=== PATIENT | female | born 1935 | race Caucasian/White ===

== ENCOUNTER → 2018-10-23 | Outpatient (CLI) | payer MEDICARE ==
[2018-10-23 16:54] LABS: Thyroid Peroxidase Antibodies 28.6 U/mL (0.0-60.0)
== END ==
LOC: LABWHC1 10:00
PROVIDERS: ATTEND Internal Medicine Endocrinology, Diabetes & Metabolism
DX: R94.6 Abnormal results of thyroid function studies (principal)
CPT/HCPCS: 36415; 82533; 84439; 84443; 84480; 86376

== ENCOUNTER → 2018-12-11 | Outpatient (CLI) | payer MEDICARE | LOC: LABWHC1 11:59 | PROVIDERS: ATTEND Internal Medicine Endocrinology, Diabetes & Metabolism | DX: R94.6 Abnormal results of thyroid function studies (principal) | CPT/HCPCS: 36415; 84443 ==

== ENCOUNTER → 2019-06-09 | Outpatient (CLI) | payer MEDICARE | END | disposition home or self-care (01) | LOC: LABWHC1 11:58 | PROVIDERS: ATTEND Internal Medicine Endocrinology, Diabetes & Metabolism | DX: E03.8 Other specified hypothyroidism (principal) | CPT/HCPCS: 36415; 84443 ==

== ENCOUNTER → 2020-09-21 | Outpatient (CLI) | payer MEDICARE ==
--- NOTE | 2020-09-21 16:25 | NM ---
EXAMINATION TYPE: NM hepatobiliary w CCK DATE OF EXAM: 09/21/2020 COMPARISON: NONE HISTORY: Gastroesophageal reflux disease TECHNIQUE: After the intravenous administration of 5 mCi Tc 99m Mebrofenin hepatobiliary scintigraphy is performed. Immediate images post injection. FINDINGS: There is satisfactory initial accumulation of tracer by the liver. The gallbladder is visualized wit hin 90 minutes. The small bowel activity is noted within 8 minutes. CCK was administered, patient w as injected with 1.4 mcg of Kinevac, and gallbladder ejection fraction is calculated at 78 %, in the normal range. Therefore there is no scintigraphic evidence of cystic or common bile duct obstruction . IMPRESSION: There is some delayed visualization of the gallbladder, normal gallbladder ejection fract ion
== END | disposition home or self-care (01) ==
LOC: RADNMMAIN 12:51
PROVIDERS: ATTEND Surgery
DX: K21.9 Gastro-esophageal reflux disease without esophagitis (principal)
CPT/HCPCS: 78227; A9537; J2805

== ENCOUNTER 2020-09-23 11:00 | Day surgery (SDC) | payer MEDICARE ==
[2020-09-22 08:48] VITALS: BMI 27.1
[~2020-09-23 11:00] MED LIST: LACTATED RINGERS 1,000 ML IV SCH
[2020-09-23 11:40] VITALS: TEMP 98.3
[2020-09-23] MEDS ORDERED: PROPOFOL 10 MG/ML 20 ML VIAL IV ONE (12:28)
[2020-09-23] MEDS ORDERED: LIDOCAINE 1% INJ 10MG/ML (20 ML MDV) ONE (12:28)
--- NOTE | 2020-09-23 12:37 | P.GSHP ---
History of Present Illness H&P Date: 09/23/20 Chief Complaint: GERD Is a 5-year-old female been safe for EGD. She's had issues with GERD. Past Medical History Past Medical History: Hypertension, Thyroid Disorder Additional Past Medical History / Comment(s): MID EPIGASTRIC PAIN SINCE JUL 2020 History of Any Multi-Drug Resistant Organisms: None Reported Past Surgical History: Hysterectomy, Joint Replacement Additional Past Surgical History / Comment(s): LT TKA, RT SCOOTER, COLONOSCOPY. BILAT CATARACTS REMOVED WITH LENS IMPLANTS Past Anesthesia/Blood Transfusion Reactions: No Reported Reaction Smoking Status: Never smoker - Past Family History Mother Family Medical History: Cancer Medications and Allergies Home Medications Medication Instructions Recorded Confirmed Type Aspirin [Adult Low Dose Aspirin EC] 81 mg PO HS 09/22/20 09/22/20 History Bioclens 1 tab PO DAILY 09/22/20 History Cholecalciferol [Vitamin D3 (25 25 mcg PO DAILY 09/22/20 09/22/20 History Mcg = 1000 Iu)] Cholestrol Care 1 tab PO DAILY 09/22/20 History Cyclobenzaprine [Flexeril] 5 mg PO HS 09/22/20 09/22/20 History Estazolam 1 mg PO HS PRN 09/22/20 09/22/20 History Krill/Om-3/Dha/Epa/Phospho/Ast 1 each PO DAILY 09/22/20 09/22/20 History [[place]-3 Krill Oil 300 mg Sfgl] Levothyroxine Sodium [Synthroid] 50 mcg PO DAILY 09/22/20 09/22/20 History Lisinopril [Prinivil] 10 mg PO HS 09/22/20 09/22/20 History Lutein 40 mg PO DAILY 09/22/20 09/22/20 History Querctin 500 mg PO DAILY 09/22/20 History Vitamin C/Biotin [Hair, Skin and 2 tab PO DAILY 09/22/20 09/22/20 History Nails] amLODIPine [Norvasc] 5 mg PO DAILY 09/22/20 09/22/20 History atenoloL [Atenolol] 25 mg PO HS 09/22/20 09/23/20 History hydroCHLOROthiazide [Hydrodiuril] 25 mg PO DAILY 09/22/20 09/22/20 History Allergies Allergy/AdvReac Type Severity Reaction Status Date / Time No Known Allergies Allergy Verified 09/23/20 11:40 Surgical - Exam Vital Signs Temp Pulse Resp BP Pulse Ox 98.3 F 75 16 186/86 97 09/23/20 11:35 09/23/20 11:35 09/23/20 11:35 09/23/20 11:35 09/23/20 11:35 - General well developed, well nourished, no distress - Eyes PERRL - ENT normal pinna - Neck no masses - Respiratory normal expansion - Cardiovascular Rhythm: regular - Abdomen Abdomen: soft, non tender Assessment and Plan Assessment: GERD. We'll perform EGD.
--- NOTE | 2020-09-23 12:43 | P.OP ---
Date of Procedure: 09/23/20 Preoperative Diagnosis: GERD Postoperative Diagnosis: Antral gastritis Small sliding hiatal hernia Esophagitis Procedure(s) Performed: EGD Anesthesia: MAC Surgeon: Jama Allen Pathology: other (Antrum, esophagus) Condition: stable Disposition: PACU Description of Procedure: The patient's placed on the endoscopy table in the lateral position. She received IV sedation. The gastroscope placed oropharynx passed in the esophagus and stomach. Scope was placed through the pylorus. First and second portion of the duodenum appeared normal. Scope was then brought back the antrum this. Mildly inflamed. A biopsies performed. The scope was retroflexed and the remainder of the stomach appeared normal. There was a small sliding hiatal hernia. The GE junction was at 38 cm. The distal esophagus appeared inflamed a biopsies performed. The proximal esophagus appeared normal. The scope was with drawn for patient.
[2020-09-23] MEDS ORDERED: HYDROmorphone 0.5 MG/0.5 ML SYRINGE IVP ONE (12:55)
[2020-09-23 13:10] VITALS: BP 167/88; PULSE 59; RESP 16
== END 2020-09-23 13:58 | disposition home or self-care (01) ==
LOC: ORWHC2ENDO 11:00
PROVIDERS: ATTEND Surgery
DX: K29.50 Unspecified chronic gastritis without bleeding (principal); K21.00 Gastro-esophageal reflux disease with esophagitis, without bleeding; K44.9 Diaphragmatic hernia without obstruction or gangrene; I10 Essential (primary) hypertension; E07.9 Disorder of thyroid, unspecified; Z90.710 Acquired absence of both cervix and uterus; Z96.652 Presence of left artificial knee joint; Z96.641 Presence of right artificial hip joint; Z98.42 Cataract extraction status, left eye; Z98.41 Cataract extraction status, right eye; Z96.1 Presence of intraocular lens; Z80.9 Family history of malignant neoplasm, unspecified; Z79.82 Long term (current) use of aspirin; Z79.890 Hormone replacement therapy; Z79.899 Other long term (current) drug therapy
CPT/HCPCS: 88305; 43239; J2001; J2704; J1170

== ENCOUNTER 2020-10-10 07:56 | Inpatient (IN) | payer MEDICARE ==
[2020-10-10] MEDS ORDERED: SODIUM CHLORIDE 0.9% 1,000 ML IV STA (08:12)
[2020-10-10] MEDS ORDERED: MAG HYDROX/AL HYDROX/SIMETH 30 ML, HYOSCYAMINE ELIXIR 10 ML, LIDOCAINE VISCOUS 2% 10 ML PO STA ×3 (08:12)
[2020-10-10] MEDS ORDERED: PANTOPRAZOLE 40 MG/10 ML VIAL IVP STA (08:12)
--- NOTE | 2020-10-10 08:15 | ED ---
General Adult HPI - General Chief complaint: Recheck/Abnormal Lab/Rx Stated complaint: Pain/ulcers Time Seen by Provider: 10/10/20 08:04 Source: patient, family, RN notes reviewed Mode of arrival: ambulatory Limitations: no limitations - History of Present Illness Initial comments: Patient is a pleasant 85-year-old female presenting to the emergency Department with daughter with concern regarding discomfort from her. Esophagitis. Patient was diagnosed with this with endoscopy a couple of weeks ago. Patient has been having symptoms for the past few months, symptoms worsen the past couple of days and today. Patient is having difficulty sleeping. Discomfort is epigastric region and up into the lower chest. No dyspnea. No vomiting. Patient does not drink alcohol. Patient does not identify certain foods that play a factor. - Related Data Home Medications Medication Instructions Recorded Confirmed Aspirin [Adult Low Dose Aspirin EC] 81 mg PO HS 09/22/20 09/22/20 Bioclens 1 tab PO DAILY 09/22/20 Cholecalciferol [Vitamin D3 (25 25 mcg PO DAILY 09/22/20 09/22/20 Mcg = 1000 Iu)] Cholestrol Care 1 tab PO DAILY 09/22/20 Cyclobenzaprine [Flexeril] 5 mg PO HS 09/22/20 09/22/20 Estazolam 1 mg PO HS PRN 09/22/20 09/22/20 Krill/Om-3/Dha/Epa/Phospho/Ast 1 each PO DAILY 09/22/20 09/22/20 [[place]-3 Krill Oil 300 mg Sfgl] Levothyroxine Sodium [Synthroid] 50 mcg PO DAILY 09/22/20 09/22/20 Lisinopril [Prinivil] 10 mg PO HS 09/22/20 09/22/20 Lutein 40 mg PO DAILY 09/22/20 09/22/20 Querctin 500 mg PO DAILY 09/22/20 Vitamin C/Biotin [Hair, Skin and 2 tab PO DAILY 09/22/20 09/22/20 Nails] amLODIPine [Norvasc] 5 mg PO DAILY 09/22/20 09/22/20 atenoloL [Atenolol] 25 mg PO HS 09/22/20 09/23/20 hydroCHLOROthiazide [Hydrodiuril] 25 mg PO DAILY 09/22/20 09/22/20 Allergies Allergy/AdvReac Type Severity Reaction Status Date / Time No Known Allergies Allergy Verified 10/10/20 10:11 Review of Systems ROS Statement: Those systems with pertinent positive or pertinent negative responses have been documented in the HPI. ROS Other: All systems not noted in ROS Statement are negative. Constitutional: Denies: fever Eyes: Denies: eye pain ENT: Denies: ear pain Respiratory: Denies: cough Cardiovascular: Reports: as per HPI Endocrine: Denies: fatigue Gastrointestinal: Reports: as per HPI Genitourinary: Denies: dysuria Musculoskeletal: Denies: back pain Skin: Denies: rash Neurological: Denies: weakness Past Medical History Past Medical History: Hypertension, Thyroid Disorder History of Any Multi-Drug Resistant Organisms: None Reported Past Surgical History: Hysterectomy, Orthopedic Surgery Past Psychological History: No Psychological Hx Reported Smoking Status: Never smoker Past Alcohol Use History: None Reported Past Drug Use History: None Reported General Exam Limitations: no limitations General appearance: alert, in no apparent distress Head exam: Present: normocephalic Eye exam: Present: normal appearance Neck exam: Present: normal inspection Respiratory exam: Present: normal lung sounds bilaterally. Absent: chest wall t enderness Cardiovascular Exam: Present: regular rate, normal rhythm Expanded Peripheral pulses: 2+: Posterior Tibialis (R), Posterior Tibialis (L) GI/Abdominal exam: Present: soft. Absent: distended, tenderness, pulsatile mass Extremities exam: Present: normal inspection Neurological exam: Present: alert Psychiatric exam: Present: normal affect, normal mood Skin exam: Present: normal color Course Vital Signs 10/10/20 07:59 Temperature 97.5 F L Pulse Rate 91 Respiratory 20 Rate Blood Pressure 165/89 O2 Sat by Pulse 99 Oximetry EKG Findings - EKG Comments: EKG Findings:: Sinus rhythm at 79. [place] 160. QRS 80. QT 440. QTc 504. Left axis. LVH with borderline lateral ST depression Medical Decision Making - Medical Decision Making Patient reevaluated and still having discomfort. Patient and family updated. Case discussed with Dr. Maya, who will admit his patient. Case also discussed with Dr. Sawant who will consult. - Lab Data Result diagrams: 10/10/20 08:37 10/10/20 08:37 Lab Results 10/10/20 10/10/20 10/10/20 Range/Units 08:37 08:37 08:37 WBC 13.2 H (3.8-10.6) k/uL RBC 4.84 (3.80-5.40) m/uL Hgb 15.0 (11.4-16.0) gm/dL Hct 43.2 (34.0-46.0) % MCV 89.3 (80.0-100.0) fL MCH 31.1 (25.0-35.0) pg MCHC 34.8 (31.0-37.0) g/dL RDW 12.6 (11.5-15.5) % Plt Count 273 (150-450) k/uL MPV 7.7 Neutrophils % 74 % Lymphocytes % 17 % Monocytes % 6 % Eosinophils % 1 % Basophils % 1 % Neutrophils # 9.8 H (1.3-7.7) k/uL Lymphocytes # 2.2 (1.0-4.8) k/uL Monocytes # 0.8 (0-1.0) k/uL Eosinophils # 0.1 (0-0.7) k/uL Basophils # 0.1 (0-0.2) k/uL PT 10.1 (9.0-12.0) sec INR 0.9 (<1.2) APTT 22.6 (22.0-30.0) sec Sodium 137 (137-145) mmol/L Potassium 3.6 (3.5-5.1) mmol/L Chloride 103 (98-107) mmol/L Carbon Dioxide 23 (22-30) mmol/L Anion Gap 11 mmol/L BUN 17 (7-17) mg/dL Creatinine 0.60 (0.52-1.04) mg/dL Est GFR (CKD-EPI)AfAm >90 (>60 ml/min/1.73 sqM) Est GFR (CKD-EPI)NonAf 83 (>60 ml/min/1.73 sqM) Glucose 117 H (74-99) mg/dL Calcium 10.1 (8.4-10.2) mg/dL Total Bilirubin 0.7 (0.2-1.3) mg/dL AST 195 H (14-36) U/L ALT 38 H (4-34) U/L Alkaline Phosphatase 48 (38-126) U/L Troponin I (0.000-0.034) ng/mL Total Protein 7.0 (6.3-8.2) g/dL Albumin 4.2 (3.5-5.0) g/dL Amylase 39 (30-110) U/L Lipase 103 (23-300) U/L 10/10/20 Range/Units 08:37 WBC (3.8-10.6) k/uL RBC (3.80-5.40) m/uL Hgb (11.4-16.0) gm/dL Hct (34.0-46.0) % MCV (80.0-100.0) fL MCH (25.0-35.0) pg MCHC (31.0-37.0) g/dL RDW (11.5-15.5) % Plt Count (150-450) k/uL MPV Neutrophils % % Lymphocytes % % Monocytes % % Eosinophils % % Basophils % % Neutrophils # (1.3-7.7) k/uL Lymphocytes # (1.0-4.8) k/uL Monocytes # (0-1.0) k/uL Eosinophils # (0-0.7) k/uL Basophils # (0-0.2) k/uL PT (9.0-12.0) sec INR (<1.2) APTT (22.0-30.0) sec Sodium (137-145) mmol/L Potassium (3.5-5.1) mmol/L Chloride (98-107) mmol/L Carbon Dioxide (22-30) mmol/L Anion Gap mmol/L BUN (7-17) mg/dL Creatinine (0.52-1.04) mg/dL Est GFR (CKD-EPI)AfAm (>60 ml/min/1.73 sqM) Est GFR (CKD-EPI)NonAf (>60 ml/min/1.73 sqM) Glucose (74-99) mg/dL Calcium (8.4-10.2) mg/dL Total Bilirubin (0.2-1.3) mg/dL AST (14-36) U/L ALT (4-34) U/L Alkaline Phosphatase (38-126) U/L Troponin I 5.760 H* (0.000-0.034) ng/mL Total Protein (6.3-8.2) g/dL Albumin (3.5-5.0) g/dL Amylase (30-110) U/L Lipase (23-300) U/L - Radiology Data Radiology results: image reviewed (Chest and abdominal x-ray revealed no acute process) Critical Care Time Critical Care Time: Yes Total Critical Care Time: 32 Disposition Clinical Impression: NSTEMI (non-ST elevated myocardial infarction) Disposition: ADMITTED IP TO THIS [facility] Condition: Serious Is patient prescribed a controlled substance at d/c from ED?: No Referrals: Bran Maya MD [Primary Care Provider] - 1-2 days Decision Time: 10:16
[2020-10-10 08:57] LABS: Basophils # (A) 0.1 k/uL (0-0.2); Basophils % (A) 1 %; Eosinophils # (A) 0.1 k/uL (0-0.7); Eosinophils % (A) 1 %; HCT 43.2 % (34.0-46.0); Lymphocytes # (A) 2.2 k/uL (1.0-4.8); Lymphocytes % (A) 17 %; MCH 31.1 pg (25.0-35.0); MCHC 34.8 g/dL (31.0-37.0); MCV 89.3 fL (80.0-100.0); Mean Platelet Volume 7.7; Monocytes # (A) 0.8 k/uL (0-1.0); Monocytes % (A) 6 %; Neutrophils # (A) 9.8 k/uL (1.3-7.7); Neutrophils % (A) 74 %; Platelet Count 273 k/uL (150-450); RBC 4.84 m/uL (3.80-5.40); RDW 12.6 % (11.5-15.5); WBC 13.2 k/uL (3.8-10.6)
[2020-10-10 09:08] LABS: ALT 38 U/L (4-34); AST 195 U/L (14-36); African American GFR (CKD) >90 (>60 ml/min/1.73 sqM); Albumin 4.2 g/dL (3.5-5.0); Alkaline Phosphatase 48 U/L (38-126); Amylase 39 U/L (30-110); Anion Gap 11 mmol/L; Blood Urea Nitrogen 17 mg/dL (7-17); Calcium 10.1 mg/dL (8.4-10.2); Carbon Dioxide 23 mmol/L (22-30); Chloride 103 mmol/L (98-107); Glucose 117 mg/dL (74-99); Lipase 103 U/L (23-300); Non-African American GFR(CKD) 83 (>60 ml/min/1.73 sqM); Potassium 3.6 mmol/L (3.5-5.1); Sodium 137 mmol/L (137-145); Total Bilirubin 0.7 mg/dL (0.2-1.3)
[2020-10-10 09:09] LABS: INR 0.9 (<1.2); Partial Thromboplastin Time 22.6 sec (22.0-30.0); Prothrombin Time 10.1 sec (9.0-12.0)
--- NOTE | 2020-10-10 09:33 | XR ---
EXAMINATION TYPE: XR chest 2V DATE OF EXAM: 10/10/2020 COMPARISON: NONE HISTORY: Chest and abdominal pain. TECHNIQUE: Frontal and lateral views of the chest are obtained. FINDINGS: There is no focal air space opacity, pleural effusion, or pneumothorax seen. The cardiac silhouette size is within normal limits with atherosclerotic and slightly ectatic thoracic aorta. T he osseous structures are somewhat demineralized. IMPRESSION: No acute cardiopulmonary process.
--- NOTE | 2020-10-10 09:34 | XR ---
EXAMINATION TYPE: XR KUB DATE OF EXAM: 10/10/2020 9:06 AM CLINICAL HISTORY: Abdominal pain. TECHNIQUE: Two Upright KUB images of the abdomen are obtained. COMPARISON: None. FINDINGS: Some paucity of bowel gas. Gas seen in nondistended stomach along with scattered small and large bowel loops. Metallic hardware from right hip arthroplasty is partially imaged. Underlying scol iotic curvature. No free air. Lung bases grossly clear. IMPRESSION: Overall nonspecific but strongly favor nonobstructive bowel gas pattern.
[2020-10-10] MEDS ORDERED: HYDROmorphone 1 MG/ML 1 ML SYRINGE IVP STA (09:36)
[2020-10-10] MEDS ORDERED: ASPIRIN 81 MG PO STA (10:13)
[2020-10-10] MEDS ORDERED: NITROGLYCERIN SL TABS 0.4 MG TAB SUBLINGUAL STA (10:13)
[2020-10-10] MEDS ORDERED: HEPARIN SODIUM,PORCINE 5,000 UNIT/ML 1 ML VIAL IV PRN (10:16)
[2020-10-10] MEDS ORDERED: MORPHINE SULFATE 4 MG/ML SYRINGE IV PRN (10:16)
[2020-10-10] MEDS ORDERED: HEPARIN SODIUM,PORCINE 5,000 UNIT/ML 1 ML VIAL IV ONE (10:16)
[2020-10-10] MEDS ORDERED: NITROGLYCERIN SL TABS 0.4 MG TAB SUBLINGUAL PRN (10:16)
[2020-10-10] MEDS: HEPARIN SOD,PORK IN 0.45% NACL 25,000 UNIT in 0.45% NACL 1 250ML.BAG IV SCH (10:46)
--- NOTE | 2020-10-10 11:00 | P.HPIM ---
History of Present Illness H&P Date: 10/10/20 Chief Complaint: Epigastric and chest pain HISTORY OF PRESENT ILLNESS This is an 85-year-old female patient of Dr. Maya past medical history of hypothyroidism, gastroesophageal reflux disease, hypertension. Patient recently underwent EGD with Dr. Allen on September 23 which found antral gastritis, small sliding hiatal hernia, esophagitis. Pathology came back with Sosa's esophagus. Patient is on Carafate twice daily and omeprazole at bedtime. She presented to the hospital with complaints of epigastric pain that went up into her sternal area and up into her shoulder and right arm, right arm weakness and phlegm production. Symptom onset is vague as patient states she's been having mostly symptoms for the last few months but worse over the past couple of days. She denies any shortness of breath. No vomiting. She is found to be afebrile, heart rate 91, blood pressure 165/89, pulse ox 99% on room air. EKG was sinus rhythm with LVH and lateral ST depression. WBC 13.2, hemoglobin 15, platelet count 273. Electrolytes and renal function normal. Blood sugar was 117. Total bilirubin 0.7, AST 195, ALT 38, alkaline phosphatase 48. Surprisingly, patient's troponin came back at 5.760. Chest x-ray shows no acute cardio p ulmonary process. Patient was diagnosed with a non-ST elevated myocardial infarction, admitted to the cardiac stepdown unit, heparin drip started, cardiology consult requested. REVIEW OF SYSTEMS Constitutional: No fever, no chills, no night sweats. No weight change. No w eakness, fatigue or lethargy. No daytime sleepiness. EENT: No headache. No blurred vision or double vision, no loss of vision. No loss of Hearing, no ringing in the ears, no dizziness. No nasal drainage or congestion. No epistaxis. No sore throat. Lungs: No shortness of breath, cough, no sputum production. No wheezing. Cardiovascular: Reports chest pain, no lower extremity edema. No palpitations. No paroxysmal nocturnal dyspnea. No orthopnea. No lightheadedness or dizziness. No syncopal episodes. Abdominal: Reports abdominal pain. No nausea, vomiting. No diarrhea. No constipation. No bloody or tarry stools.. Reports loss of appetite. Genitourinary: No dysuria, increased frequency, urgency. No urinary retention. Musculoskeletal: No myalgias. No muscle weakness, no gait dysfunction, no frequent falls. No back pain. No neck pain. Integumentary: No wounds, no lesions. No rash or pruritus. No unusual bruising. No change in hair or nails. Neurologic: No aphasia. No facial droop. No change in mentation. No head injury. No headache. No paralysis. No paresthesia. Psychiatric: No depression. No anxiety. No mood swings. Endocrine: No abnormal blood sugars. No weight change. SOCIAL HISTORY She is a lifelong nonsmoker. No alcohol use or abuse, no illicit drug use. Patient resides with her daughter. FAMILY HISTORY Mother at age 93 from metastatic cancer to her brain with history of uterine or ovarian cancer. Father from peptic ulcer disease with perforated ulcer with history of myeloma. Patient has 1 sister with no major medical problems. Patient's 2 brothers and one has history of melanoma and diabetes. Patient's 4 daughters with no major medical problems. PHYSICAL EXAMINATION Gen: This is an 85-year-old female. Patient is resting on the ER stretcher and appears to be comfortable. Daughter is at bedside. HEENT: Head is atraumatic, normocephalic. Pupils equal, round. Sclerae is anicteric. NECK: Supple. No JVD. No lymphadenopathy. No thyromegaly. LUNGS: Clear to auscultation. No wheezes or rhonchi. No intercostal retractions. HEART: Regular rate and rhythm. No murmur. No chest wall tenderness. ABDOMEN: Soft. Bowel sounds are present. No masses. No tenderness. EXTREMITIES: No pedal edema. No calf tenderness. Dorsalis pedis palpable bi laterally. NEUROLOGICAL: Patient is awake, alert and oriented x3. Cranial nerves 2 through 12 are grossly intact. ASSESSMENT AND PLAN 1. Non-ST elevated myocardial infarction. Patient started on heparin drip, echocardiogram ordered, cardiology consult. Continue aspirin 325 mg daily, morphine as needed for pain, nitro ointment every 6 hours. 2. Gastritis and esophagitis with Sosa's esophagus. Continue Carafate twice daily and omeprazole daily. 3. Hypothyroidism. Continue levothyroxine 50 g daily. 4. Chronic insomnia. Continue Estazolam 2 mg at bedtime as needed, patient is been on this long-term.. 5. Hypertension. She is currently on atenolol 25 mg at bedtime. 6. GI prophylaxis. Omeprazole. 7. DVT prophylaxis. Heparin. Patient will be admitted to the hospital for a minimum of 2 night stay. DISCHARGE PLAN Most likely return home with her daughter. Impression and plan of care have been directed as dictated by the signing physician. Kacie Bush nurse practitioner acting as scribe for signing physician. Past Medical History Past Medical History: Hypertension, Thyroid Disorder History of Any Multi-Drug Resistant Organisms: None Reported Past Surgical History: Hysterectomy, Orthopedic Surgery Past Psychological History: No Psychological Hx Reported Smoking Status: Never smoker Past Alcohol Use History: None Reported Past Drug Use History: None Reported - Past Family History Mother Additional Family Medical History / Comment(s): Lots of heart issues. Medications and Allergies Home Medications Medication Instructions Recorded Confirmed Type Cyclobenzaprine [Flexeril] 5 mg PO TID 09/22/20 10/10/20 History Estazolam 2 mg PO HS PRN 09/22/20 10/10/20 History Levothyroxine Sodium [Synthroid] 50 mcg PO DAILY 09/22/20 10/10/20 History Lisinopril [Prinivil] 10 mg PO HS 09/22/20 10/10/20 History Vitamin C/Biotin [Hair, Skin and 1 tab PO DAILY 09/22/20 10/10/20 History Nails] atenoloL [Atenolol] 25 mg PO HS 09/22/20 10/10/20 History Omeprazole 40 mg PO DAILY 10/10/20 10/10/20 History Sucralfate [Carafate] 1 gm PO BID 10/10/20 10/10/20 History Turmeric Root Extract [Turmeric] 500 mg PO DAILY 10/10/20 10/10/20 History Allergies Allergy/AdvReac Type Severity Reaction Status Date / Time No Known Allergies Allergy Verified 10/10/20 10:11 Physical Exam Vitals: Vital Signs Temp Pulse Resp BP Pulse Ox 10/10/20 07:59 97.5 F L 91 20 165/89 99 Intake and Output 10/09/20 10/10/20 10/10/20 22:59 06:59 14:59 Other: Weight 71.668 kg Results CBC & Chem 7: 10/11/20 04:23 10/11/20 04:23 Labs: Abnormal Lab Results - Last 24 Hours (Table) 10/10/20 10/10/20 10/10/20 Range/Units 08:37 08:37 08:37 WBC 13.2 H (3.8-10.6) k/uL Neutrophils # 9.8 H (1.3-7.7) k/uL Glucose 117 H (74-99) mg/dL AST 195 H (14-36) U/L ALT 38 H (4-34) U/L Troponin I 5.760 H* (0.000-0.034) ng/mL
[2020-10-10 11:03] LABS: Appearance,Urine Clear (Clear); Bilirubin,Urine Negative (Negative); Blood,Urine Negative (Negative); Color,Urine Light Yellow; Glucose,Urine (UA) Negative (Negative); Hyaline Casts,Urine 1 /lpf (0-2); Ketones,Urine Negative (Negative); Leukocyte Esterase,Urine Trace (Negative); Mucus,Urine Rare /hpf; Nitrite,Urine Negative (Negative); Protein,Urine Negative (Negative); RBC,Urine <1 /hpf (0-5); Specific Gravity,Urine 1.007 (1.001-1.035); Urobilinogen,Urine <2.0 mg/dL (<2.0); WBC,Urine 2 /hpf (0-5)
--- NOTE | 2020-10-10 12:05 | CONS ---
CONSULTATION ATTENDING PHYSICIAN: Dr. Maya. HISTORY OF PRESENT ILLNESS: Mrs. Ledezma is an 85-year-old female with known history of hypertension who for the last 2 weeks has been complaining of chest discomfort. The discomfort was started in the abdomen radiating up to the chest. She underwent upper endoscopy by Dr. Allen and was noted to have evidence suggestive of an esophagitis and gastritis. Last night she had worse pain and she came into the emergency room and was noted to have an elevation of her troponin. The patient denies any prior cardiac history. Up to now she has been reasonably active. She denies any dizziness or palpitation. She denies any syncope. She has occasional peripheral edema. No PND or orthopnea. She has no recent cardiac workup. On her upper endoscopy done on September 23, she was noted to have an antral gastritis, hiatal hernia and Sosa's esophagus. Her coronary artery risk factors are positive for hypertension. She is a nonsmoker, nondiabetic. Her lipid profile is not available. She continues to be on atenolol 25 mg daily, Carafate 1 gram twice a day, omeprazole, Prinivil 10 mg daily, levothyroxine, Flexeril. REVIEW OF SYSTEMS: RESPIRATORY SYSTEM: She has dyspnea on exertion recently. No wheezing. No cough. GI SYSTEM: She has history of hiatal hernia. No recent GI bleeding. SYSTEM: No dysuria or hematuria. NERVOUS SYSTEM: No stroke or seizure. PHYSICAL EXAMINATION: She is an 85-year-old female, alert, oriented, in moderate discomfort. Blood pressure 143/80 with a heart rate in the 80s. HEAD: Normocephalic. Eyes sclerae nonicteric. NECK: Good carotid upstroke, no bruit, no jugular venous distention. LUNGS: Clear to auscultation. HEART: Regular rate and rhythm S1, S2. No S3 with systolic murmur heard at the base. No diastolic murmur. No rub. ABDOMEN: Soft. Mild epigastric tenderness. Positive bowel sounds. No organomegaly. EXTREMITIES: No edema. Intact distal pulses. LAB DATA: Lab data revealed a troponin 5.76. BUN and creatinine of 17 and 0.6. Potassium 3.6. AST 195, ALT of 38. Hemoglobin of 15, white blood cell of 13.2. EKG revealed a sinus mechanism with a normal axis and intervals and ST depression in the lateral leads with evidence of left ventricular hypertrophy. There is no evidence of evolution on her chest x-ray. Her abdominal x-ray revealed a nonspecific pattern. Her chest x-ray shows no acute infiltrate. IMPRESSION: 1. Evidence of epigastric and chest discomfort with findings consistent with non STEMI. 2. History of hypertension. 3. History of gastritis and esophagitis with Sosa's esophagus. RECOMMENDATION: I discussed with the patient and her daughter at length the finding. I discussed with them the options including cardiac catheterization versus clinical observation. Both options, risks, and complication were discussed with her. She is not quite sure what she wants. At this time, we will continue her medical therapy. I will adjust her regimen. We will obtain echocardiogram with Doppler and depending on her progress, further recommendation will be made. Thank you for this consult. Will follow with you. YENNY / RAQUELN: [id number] /
[2020-10-10] MEDS: ATORVASTATIN 40 MG TAB PO SCH (12:48)
[2020-10-10] MEDS: METOPROLOL TARTRATE 25 MG TAB PO SCH ×2 (12:49→20:31)
[2020-10-10] MEDS: NITROGLYCERIN OINT 1 INCH/GM PACKET TOPICAL SCH ×2 (12:51→19:25)
[2020-10-10] MEDS: CYCLOBENZAPRINE 5 MG TAB PO SCH ×2 (15:52→20:32)
[2020-10-10] MEDS: SUCRALFATE 1 GM TAB PO SCH (20:31)
[2020-10-10] MEDS: lisinopriL 10 MG TAB PO SCH (20:31)
[2020-10-10] MEDS ORDERED: atenoloL 25 MG TAB PO SCH (21:00)
[2020-10-10] MEDS: TEMAZEPAM 15 MG CAP PO PRN (21:32)
[2020-10-11] MEDS: LEVOTHYROXINE 50 MCG TAB PO SCH (06:01)
[2020-10-11] MEDS: NITROGLYCERIN OINT 1 INCH/GM PACKET TOPICAL SCH ×3 (06:50→19:10)
[2020-10-11 07:12] LABS: Calcium 9.9 mg/dL (8.4-10.2); Potassium 3.5 mmol/L (3.5-5.1)
[2020-10-11 07:46] LABS: Cholesterol 150 mg/dL (<200); HDL Cholesterol 50 mg/dL (40-60); LDL Cholesterol,Calculated 71 mg/dL (0-99); Triglycerides 143 mg/dL (<150)
[2020-10-11] MEDS ORDERED: ASPIRIN 81 MG PO SCH (09:00)
[2020-10-11] MEDS ORDERED: ASPIRIN 325 MG TAB PO SCH (09:00)
[2020-10-11] MEDS: PANTOPRAZOLE 40 MG TABLET PO SCH (09:06)
[2020-10-11] MEDS: ATORVASTATIN 40 MG TAB PO SCH (09:06)
[2020-10-11] MEDS: METOPROLOL TARTRATE 25 MG TAB PO SCH ×2 (09:06→19:59)
[2020-10-11] MEDS: SUCRALFATE 1 GM TAB PO SCH ×2 (09:06→19:59)
[2020-10-11] MEDS: CYCLOBENZAPRINE 5 MG TAB PO SCH ×3 (09:07→22:52)
[2020-10-11] MEDS ORDERED: ATORVASTATIN 80 MG TAB PO STA (09:11)
[2020-10-11] MEDS ORDERED: ALPRAZolam 0.5 MG TAB PO PRN (09:11)
[2020-10-11] MEDS ORDERED: ALPRAZolam 0.25 MG TAB PO PRN (09:11)
[2020-10-11] MEDS ORDERED: ASPIRIN 325 MG TAB PO STA (09:11)
[2020-10-11] MEDS ORDERED: SODIUM CHLORIDE 0.9% 1,000 ML in EMPTY BAG 1 BAG IV ONE (09:11)
[2020-10-11] MEDS ORDERED: ASPIRIN 81 MG PO STA (09:31)
[2020-10-11] MEDS ORDERED: ATORVASTATIN 40 MG TAB PO STA (09:36)
--- NOTE | 2020-10-11 10:21 | P.PN ---
Subjective This is a pleasant 85-year-old female with past medical history significant for hypertension. She is currently being evaluated secondary to non-ST elevated myocardial infarction. She was seen by Dr. Dr. Sawant yesterday and recommended cardiac catheterization however she wanted to think about it and wasn't sure if she wanted to proceed with heart cath or up for medical therapy. At this time she has discussed with her family and she would like to proceed with cardiac catheterization. She has had no further symptoms of chest disco mfort. She has no shortness of breath, dizziness or palpitations. Blood pressure 134/76 heart rate 73 afebrile maintaining oxygen saturation on room air. Laboratory data reviewed, sodium 139, potassium 3.5, creatinine 0.77. Troponin peak was 9.2. Currently maintained on aspirin 81 mg daily, meera rvastatin 40 mg daily, lisinopril 10 mg at bedtime, Lopressor 25 mg twice a day and IV heparin infusion. GENERAL: Well-appearing, well-nourished and in no acute distress. NECK: Supple without JVD or thyromegaly. LUNGS: Breath sounds clear to auscultation bilaterally. Respiration equal and unlabored. No wheezes, rales or rhonchi. HEART: Regular rate and rhythm with systolic ejection murmur at the base, no rubs or gallops. S1 and S2 heard. EXTREMITIES: Normal range of motion, no edema. No clubbing or cyanosis. Peripheral pulses intact. ASSESSMENT NSTEMI Hypertension History of gastritis and esophagitis with Sosa's esophagus PLAN Proceed with cardiac catheterization this afternoon with Dr. Sawant as previously discussed. Echocardiogram has been obtained, preliminary review reveals ejection fraction approximately 50% with some posterior hypokinesia noted. Further recommendations to follow based upon clinical course. Nurse Practitioner note has been reviewed, I agree with a documented findings and plan of care. Patient was seen and examined. Objective - Vital Signs Vital signs: Vital Signs Temp 98.6 F 10/11/20 04:00 Pulse 69 10/11/20 04:00 Resp 17 10/11/20 04:00 BP 122/68 10/11/20 04:00 Pulse Ox 96 10/11/20 04:00 Intake & Output 10/10/20 10/11/20 10/11/20 18:59 06:59 18:59 Intake Total 248.6 143.933 Balance 248.6 143.933 Weight 71.7 kg 72.6 kg Intake: Amount of Fluid Infused ( 8.6 ml) Intake, IV Titration 143.933 Amount Heparin Sod,Pork in 0.45% 143.933 NaCl 25,000 unit In 0.45 % NaCl 1 250ml.bag @ 12 UNITS/KG/HR 8.6 mls/hr IV .Q24H HAILEE Rx#:[id number] Oral 240 Other: # Voids 1 - Labs CBC & Chem 7: 10/11/20 04:23 10/11/20 04:23 Labs: Abnormal Lab Results - Last 24 Hours (Table) 10/10/20 10/10/20 10/10/20 Range/Units 08:37 10:53 10:55 APTT (22.0-30.0) sec Chloride (98-107) mmol/L Glucose (74-99) mg/dL Troponin I 5.760 H* 5.620 H* (0.000-0.034) ng/mL Ur Leukocyte Esterase Trace H (Negative) Urine Mucus Rare H (None) /hpf 10/10/20 10/10/20 10/10/20 Range/Units 14:17 14:17 16:39 APTT 80.5 H 74.1 H (22.0-30.0) sec Chloride (98-107) mmol/L Glucose (74-99) mg/dL Troponin I 9.200 H* (0.000-0.034) ng/mL Ur Leukocyte Esterase (Negative) Urine Mucus (None) /hpf 10/11/20 10/11/20 Range/Units 04:23 04:23 APTT 107.9 H* (22.0-30.0) sec Chloride 108 H (98-107) mmol/L Glucose 104 H (74-99) mg/dL Troponin I (0.000-0.034) ng/mL Ur Leukocyte Esterase (Negative) Urine Mucus (None) /hpf
--- NOTE | 2020-10-11 11:11 | P.PN ---
Subjective Progress Note Date: 10/11/20 HISTORY OF PRESENT ILLNESS This is an 85-year-old female patient of Dr. Maya past medical history of hypothyroidism, gastroesophageal reflux disease, hypertension. Patient recently underwent EGD with Dr. Allen on September 23 which found antral gastritis, small sliding hiatal hernia, esophagitis. Pathology came back with Sosa's esophagus. Patient is on Carafate twice daily and omeprazole at bedtime. She presented to the hospital with complaints of epigastric pain that went up into her sternal area and up into her shoulder and right arm, right arm weakness and phlegm production. Symptom onset is vague as patient states she's been having mostly symptoms for the last few months but worse over the past couple of days. She denies any shortness of breath. No vomiting. She is found to be afebrile, heart rate 91, blood pressure 165/89, pulse ox 99% on room air. EKG was sinus rhythm with LVH and lateral ST depression. WBC 13.2, hemoglobin 15, platelet co unt 273. Electrolytes and renal function normal. Blood sugar was 117. Total bilirubin 0.7, AST 195, ALT 38, alkaline phosphatase 48. Surprisingly, patient's troponin came back at 5.760. Chest x-ray shows no acute cardio pulmonary process. Patient was diagnosed with a non-ST elevated myocardial infarction, admitted to the cardiac stepdown unit, heparin drip started, cardiology consult requested. 10/11: Repeat troponins came back at 5.62 and 9.2. Triglycerides 143, cholesterol 150, LDL 71, HDL 50. Creatinine 0.77. She denies having any chest pain. Patient is currently on heparin drip. She denies any lightheadedness or dizziness. No palpitations. No blood in her stools. She has been seen by cardiology and given option of heart catheterization or medical management. Patient has decided to undergo heart catheterization. Echocardiogram has been obtained and report is pending. Patient is afebrile, heart rate 73, blood pressure 134/76, pulse ox 96% on room air. REVIEW OF SYSTEMS Constitutional: No fever, no chills, no night sweats. No weight change. No weakness, fatigue or lethargy. No daytime sleepiness. EENT: No headache. No blurred vision or double vision, no loss of vision. No loss of Hearing, no ringing in the ears, no dizziness. No nasal drainage or congestion. No epistaxis. No sore throat. Lungs: No shortness of breath, cough, no sputum production. No wheezing. Cardiovascular: Denies chest pain, no lower extremity edema. No palpitations. No paroxysmal nocturnal dyspnea. No orthopnea. No lightheadedness or dizziness. No syncopal episodes. Abdominal: Denies abdominal pain. No nausea, vomiting. No diarrhea. No constipation. No bloody or tarry stools.. Reports loss of appetite. Genitourinary: No dysuria, increased frequency, urgency. No urinary retention. Musculoskeletal: No myalgias. No muscle weakness, no gait dysfunction, no frequent falls. No back pain. No neck pain. Integumentary: No wounds, no lesions. No rash or pruritus. No unusual bruising. No change in hair or nails. Neurologic: No aphasia. No facial droop. No change in mentation. No head injury. No headache. No paralysis. No paresthesia. Psychiatric: No depression. No anxiety. No mood swings. Endocrine: No abnormal blood sugars. No weight change. PHYSICAL EXAMINATION Gen: This is an 85-year-old female. Patient is resting on the edge of her bed and appears to be comfortable. Patient appears to be in no acute distress. HEENT: Head is atraumatic, normocephalic. Pupils equal, round. Sclerae is anicteric. NECK: Supple. No JVD. No lymphadenopathy. No thyromegaly. LUNGS: Clear to auscultation. No wheezes or rhonchi. No intercostal retractions. HEART: Regular rate and rhythm. No murmur. No chest wall tenderness. ABDOMEN: Soft. Bowel sounds are present. No masses. No tenderness. EXTREMITIES: No pedal edema. No calf tenderness. Dorsalis pedis palpable bilaterally. NEUROLOGICAL: Patient is awake, alert and oriented x3. Cranial nerves 2 through 12 are grossly intact. ASSESSMENT AND PLAN 1. Non-ST elevated myocardial infarction. Continue heparin drip, ech ocardiogram ordered, cardiology consult appreciated. Continue aspirin 81 mg daily, atorvastatin 40 mg daily, Lopressor 25 mg twice daily, morphine as needed for pain, nitro ointment every 6 hours. 2. Gastritis and esophagitis with Sosa's esophagus. Continue Carafate twice daily and omeprazole daily. 3. Hypothyroidism. Continue levothyroxine 50 g daily. 4. Chronic insomnia. Continue Estazolam 2 mg at bedtime as needed, patient is been on this long-term.. 5. Hypertension. Lopressor 25 mg twice daily, lisinopril 10 mg at bedtime. 6. GI prophylaxis. Omeprazole. 7. DVT prophylaxis. Heparin. DISCHARGE PLAN Most likely return home with her daughter. Impression and plan of care have been directed as dictated by the signing physician. Kacie Bush nurse practitioner acting as scribe for signing physician. Objective - Vital Signs Vital signs: Vital Signs Temp 98.4 F 10/11/20 09:05 Pulse 73 10/11/20 09:05 Resp 18 10/11/20 09:05 BP 134/76 10/11/20 09:05 Pulse Ox 96 10/11/20 09:05 Intake & Output 10/10/20 10/11/20 10/11/20 18:59 06:59 18:59 Intake Total 248.6 143.933 Balance 248.6 143.933 Weight 71.7 kg 72.6 kg Intake: Amount of Fluid Infused ( 8.6 ml) Intake, IV Titration 143.933 Amount Heparin Sod,Pork in 0.45% 143.933 NaCl 25,000 unit In 0.45 % NaCl 1 250ml.bag @ 12 UNITS/KG/HR 8.6 mls/hr IV .Q24H [facility] Rx#:[id number] Oral 240 Other: # Voids 1 - Labs CBC & Chem 7: 10/11/20 04:23 10/11/20 04:23 Labs: Abnormal Lab Results - Last 24 Hours (Table) 10/10/20 10/10/20 10/10/20 Range/Units 10:53 10:55 14:17 APTT 80.5 H (22.0-30.0) sec Chloride (98-107) mmol/L Glucose (74-99) mg/dL Troponin I 5.620 H* (0.000-0.034) ng/mL Ur Leukocyte Esterase Trace H (Negative) Urine Mucus Rare H (None) /hpf 10/10/20 10/10/20 10/11/20 Range/Units 14:17 16:39 04:23 APTT 74.1 H 107.9 H* (22.0-30.0) sec Chloride (98-107) mmol/L Glucose (74-99) mg/dL Troponin I 9.200 H* (0.000-0.034) ng/mL Ur Leukocyte Esterase (Negative) Urine Mucus (None) /hpf 10/11/20 Range/Units 04:23 APTT (22.0-30.0) sec Chloride 108 H (98-107) mmol/L Glucose 104 H (74-99) mg/dL Troponin I (0.000-0.034) ng/mL Ur Leukocyte Esterase (Negative) Urine Mucus (None) /hpf
[2020-10-11] MEDS ORDERED: VERAPAMIL 2.5 MG/ML 2 ML AMP ONE (11:46)
[2020-10-11] MEDS ORDERED: LIDOCAINE 1% INJ 10MG/ML (20 ML MDV) ONE (11:46)
[2020-10-11] MEDS ORDERED: fentaNYL (PF) 50 MCG/ML 2 ML AMP ONE (11:46)
[2020-10-11] MEDS ORDERED: HEPARIN SODIUM 1,000 UN/ML (10ML VL) ONE (11:46)
[2020-10-11] MEDS ORDERED: IV FLUID CONTINUATION 1,000 ML IV ONE (11:50)
[2020-10-11] MEDS ORDERED: fentaNYL (PF) 50 MCG/ML 2 ML AMP IVP ONE (12:10)
[2020-10-11] MEDS ORDERED: LIDOCAINE 1% INJ 10MG/ML (20 ML MDV) SQ ONE (12:12)
[2020-10-11] MEDS ORDERED: VERAPAMIL SYRINGE (5 MG/10 ML) INTRAARTER ONE (12:19)
[2020-10-11] MEDS ORDERED: HEPARIN SODIUM 1,000 UN/ML (10ML VL) IV ONE ×2 (12:22→12:53)
[2020-10-11] MEDS ORDERED: CLOPIDOGREL 75 MG TAB ONE (12:24)
[2020-10-11] MEDS ORDERED: CLOPIDOGREL 75 MG TAB PO ONE (12:31)
[2020-10-11] MEDS ORDERED: NITROGLYCERIN 1000MCG/10ML SYRINGE INTRACORON ONE (12:37)
[2020-10-11] MEDS ORDERED: IOPAMIDOL-370 125ML BTL INJ ONE (12:44)
--- NOTE | 2020-10-11 12:49 | ECHOF ---
Referral Reason:LVF MEASUREMENTS -------- HEIGHT: 162.6 cm WEIGHT: 72.6 kg BP: 122/68 RVIDd: 3.0 cm (< 3.3) IVSd: 1.3 cm (0.6 - 1.1) LVIDd: 4.3 cm (3.9 - 5.3) LVPWd: 1.4 cm (0.6 - 1.1) IVSs: 1.5 cm LVIDs: 3.8 cm LVPWs: 1.4 cm LA Diam: 3.4 cm (2.7 - 3.8) MV EXCURSION: 11.453 mm (> 18.000) MV EF SLOPE: 49 mm/s (70 - 150) EPSS: 0.7 cm MV E Devonte: 0.56 m/s MV DecT: 416 ms MV A Devonte: 0.69 m/s MV E/A Ratio: 0.80 RAP: 5.00 mmHg RVSP: 11.42 mmHg FINDINGS -------- Sinus rhythm. This was a techncally difficult study with suboptimal views, , Lumason utilized for enhancement of im ages. The left ventricular size is normal. There is borderline concentric left ventricular hypertrophy. Overall left ventricular systolic function is low-normal with, an EF between 50 - 55 %. Basal post erior LV wall motion is hypokinetic. The right ventricle is normal in size. The right atrial size is normal. There is mild aortic valve sclerosis. There is no evidence of aortic regurgitation. Mild mitral annular calcification present. Mild mitral regurgitation is present. Mild tricuspid regurgitation present. The right ventricular systolic pressure, as measured by Doppl er, is 11.42mmHg. Trace/mild (physiologic) pulmonic regurgitation. The aortic root size is normal. There is no pericardial effusion. CONCLUSIONS -------- 1. This was a techncally difficult study with suboptimal views, , Lumason utilized for enhancement of images. 2. The left ventricular size is normal. 3. There is borderline concentric left ventricular hypertrophy. 4. Overall left ventricular systolic function is low-normal with, an EF between 50 - 55 %. 5. Basal posterior LV wall motion is hypokinetic. 6. The right ventricle is normal in size. 7. The right atrial size is normal. 8. There is mild aortic valve sclerosis. 9. Mild mitral annular calcification present. 10. Mild mitral regurgitation is present. 11. Mild tricuspid regurgitation present. 12. The right ventricular systolic pressure, as measured by Doppler, is 11.42mmHg. 13. Trace/mild (physiologic) pulmonic regurgitation. 14. The aortic root size is normal. 15. There is no pericardial effusion. CASE BRIEFER: Rossana Daily RDCS
[2020-10-11] MEDS ORDERED: ZOLPIDEM 5 MG TAB PO PRN (13:01)
[2020-10-11] MEDS ORDERED: ATROPINE SULFATE 0.1 MG/ML 10ML SYRINGE IV PRN (13:01)
[2020-10-11] MEDS ORDERED: RX INFO: IV CONTRAST WAS GIVEN 1 EACH MISC MISCELLANE PRN (13:01)
[2020-10-11] MEDS ORDERED: MAG HYDROX/AL HYDROX/SIMETH 30 ML CUP PO PRN (13:01)
[2020-10-11] MEDS ORDERED: NITROGLYCERIN SL TABS 0.4 MG TAB SUBLINGUAL PRN (13:01)
[2020-10-11] MEDS ORDERED: SODIUM CHLORIDE 0.9% 1,000 ML IV SCH (13:15)
[2020-10-11 14:51] VITALS: BMI 27.4
--- NOTE | 2020-10-11 14:52 | CC ---
CARDIAC CATHETERIZATION REPORT Mrs. Ledezma is an 85-year-old female with no prior documented history of coronary artery disease who presented with symptoms of chest discomfort going on and off for the last couple weeks. On presentation, her troponins were elevated at [address]-segment depression on the lateral precordial leads. Discussion regarding cardiac catheterization was made with the patient and her family on the 10 of October and she was not quite sure, then on 11 of October she decided to proceed with a cardiac catheterization. The procedure as well as the risks and the complications were discussed with the patient who is in full understanding and agreement. PROCEDURE: Patient was brought to the quality lab technician in a fasting semi-sedated state after receiving fentanyl and Benadryl and achieving moderate conscious sedated state. Using Xylocaine anesthesia and Seldinger technique, a 6-[place] sheath was introduced in the right radial artery. Selective right and left coronary angiography was performed using 5- [place] 3.5 bend right and left Elida catheter. Multiple views of the coronary artery including hemiaxial views were obtained. Following that, angioplasty and stenting was performed. Following that, a 5-[place] tight pigtail catheter was introduced in the left ventricle and the left ventricular end-diastolic pressure was calculated. Following that, catheter and sheath were removed. Hemostasis was obtained with deployment of TR band. There was no immediate complication. Patient was returned to her room in stable condition. FINDINGS: FLUOROSCOPY: There was calcification involving the ostium of the right coronary artery as well as the left anterior descending artery. LEFT MAIN: This is a large size vessel, bifurcating into left circumflex, left anterior descending artery. Left main coronary artery has no evidence of high-grade stenosis. LEFT ANTERIOR DESCENDING ARTERY: This is a large-sized vessel reaching toward the apex with wraparound apex segment giving rise to a moderately sized diagonal branch. The left anterior descending artery at the takeoff of the diagonal branch has an 80% plaque involving the takeoff of the diagonal branch. Prior to the plaque, there is a tubular lesion of about 30% to 40%. The diagonal branch has a branching segment that has about 70% blockage. The rest of the vessel has no high-grade stenosis. LEFT CIRCUMFLEX: This is a nondominant vessel, small in caliber giving rise to an obtuse marginal branch. The left circumflex as well as branches have no evidence of obstructive coronary artery disease. RIGHT CORONARY ARTERY: This is a large dominant vessel ectatic in the proximal segment and distally prior to the bifurcation of the PDA and PLV has a 99% stenosis. The rest of the vessel has mild intimal disease in the mid segment without any evidence of high- grade stenosis. LEFT VENTRICULOGRAM: The left ventriculogram was not performed. HEMODYNAMICS: There was no gradient across the aortic valve. The left ventricular end-diastolic pressure was 20-24 mmHg. CONCLUSION: 1. Calcified coronary arteries. 2. 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 3. Significant disease in the mid left anterior descending artery at the takeoff of the diagonal branch. 4. Mildly elevated left ventricular end-diastolic pressure. RECOMMENDATION: In view of finding anatomy, I recommend proceeding with angioplasty and stenting of the RCA. The procedure as well as the risks and the complications were discussed with the patient who is in full understanding and agreement. MMRICHARD / RAQUELN: [id number] /
--- NOTE | 2020-10-11 14:58 | PTCA ---
PERCUTANEOUSTRANS CORORONARY ANGIOGRAPHY Mrs. Ledezma is an 85-year-old female who presented with evidence of non ST-segment elevation myocardial infarction, underwent cardiac catheterization was found to have critical stenosis involving the right coronary artery. In view of that, recommendation was made regarding angioplasty and stenting. The procedure as well as the risks, and complication were discussed with the patient who is in full understanding and agreement. PROCEDURE: A 6-Irish FR3.5 guiding catheter was introduced in the system. After cannulating the right coronary ostium, a 0.014 balanced medium weight J-wire was advanced across the lesion, positioned distally then a 3.25 x 12 mm Trek balloon was advanced and one inflation at 10 atmospheres was done. Following that, the balloon was removed and a 4.0 x 15 mm Xience Sara stent was deployed post dilated at 16 atmospheres. After the last inflation, after appropriate wait, the balloon and the guidewire were withdrawn back in the guiding catheter. Images were obtained and repeated. Those images reveal stable successful stenting. At that point, the guiding catheter, the balloon and the guidewire were removed. Left ventricular end-diastolic pressure was calculated. Following that, catheter and sheath were removed. Hemostasis was obtained with deployment of a TR band. There was no immediate complication. Patient was returned to her room in stable condition. Of note, the patient received a total of 6000 units of intravenous heparin. Her ACT was followed. She received an oral loading dose of clopidogrel. She has chest discomfort and EKG changes with the inflation that resulted in procedure. RESULTS: Successful stenting of the distal right coronary artery with reduction of stenosis from 99% to 0%. RECOMMENDATION: Patient to continue aspirin, Plavix, statin, beta ramsey and MARINA inhibitor. The importance of dual antiplatelet treatment were discussed with the patient and her family and were in full understanding and agreement. She will be re-evaluated at a later time regarding the need to undergo the revascularization of LAD. Duration of sedation is 43 minutes. MMODL / IJN: [id number] /
--- NOTE | 2020-10-11 15:01 | LTR ---
October 11, 2020 Re: Jemma Ledezma Dear Dr. Maya: I had the opportunity to perform cardiac catheterization and coronary angioplasty on Mrs. Bismark cunningham at [facility] on the 11 of October and a full copy of the procedure note will be forwarded to you. In brief, she was found to have critical stenosis involving the distal right coronary artery as well as significant disease in the mid LAD. She underwent successful stenting of the distal right coronary artery using a drug-eluding stent. I would recommend to continue medical therapy and will be re-evaluated down the road regarding the need to undergo revascularization of her left anterior descending artery. I will keep you updated on progress. Thank you again for allowing me the opportunity to participate in her care. Please feel free to call for any questions. Sincerely yours, MD YENNY Armenta / LEV: [id number] /
[2020-10-11] MEDS ORDERED: HEPARIN SODIUM,PORCINE 5,000 UNIT/ML 1 ML VIAL IV PRN (15:13)
[2020-10-11] MEDS ORDERED: METOPROLOL TARTRATE 25 MG TAB PO STA (15:14)
[2020-10-11] MEDS: HEPARIN SOD,PORK IN 0.45% NACL 25,000 UNIT in 0.45% NACL 1 250ML.BAG IV SCH ×2 (15:35→19:10)
[2020-10-11] MEDS: AMIODARONE 200 MG TAB PO SCH ×2 (16:20→20:01)
[2020-10-11 16:31] LABS: Partial Thromboplastin Time 50.5 sec (22.0-30.0); Prothrombin Time 10.5 sec (9.0-12.0)
[2020-10-11 17:11] LABS: Basophils # (A) 0.1 k/uL (0-0.2); Basophils % (A) 1 %; Eosinophils # (A) 0.1 k/uL (0-0.7); Eosinophils % (A) 1 %; HCT 38.4 % (34.0-46.0); HGB 12.8 gm/dL (11.4-16.0); Lymphocytes # (A) 2.5 k/uL (1.0-4.8); Lymphocytes % (A) 26 %; MCH 31.3 pg (25.0-35.0); MCHC 33.2 g/dL (31.0-37.0); Monocytes # (A) 0.5 k/uL (0-1.0); Monocytes % (A) 5 %; Neutrophils # (A) 6.3 k/uL (1.3-7.7); Neutrophils % (A) 66 %; RBC 4.08 m/uL (3.80-5.40); WBC 9.5 k/uL (3.8-10.6)
[2020-10-11 17:19] LABS: MCV 94.3 fL (80.0-100.0)
[2020-10-11 17:22] LABS: Mean Platelet Volume 7.6; Platelet Count 213 k/uL (150-450)
[2020-10-11] MEDS: ATORVASTATIN 80 MG TAB PO SCH (19:59)
[2020-10-11] MEDS: lisinopriL 10 MG TAB PO SCH (19:59)
[2020-10-11] MEDS ORDERED: AMIODARONE 200 MG TAB PO SCH (21:00)
[2020-10-11] MEDS: TEMAZEPAM 15 MG CAP PO PRN (22:55)
[2020-10-12] MEDS: LEVOTHYROXINE 50 MCG TAB PO SCH (06:04)
[2020-10-12] MEDS ORDERED: HEPARIN SODIUM,PORCINE 2,500 UNIT in SODIUM CHLORIDE 0.9% 250 ML IRRIGATION PRN (07:00)
[2020-10-12] MEDS ORDERED: HEPARIN SODIUM,PORCINE 10,000 UNIT in SODIUM CHLORIDE 0.9% 1,000 ML IRRIGATION PRN (07:00)
[2020-10-12 07:40] LABS: Basophils % (A) 1 %; Eosinophils # (A) 0.1 k/uL (0-0.7); Eosinophils % (A) 2 %; HCT 37.9 % (34.0-46.0); HGB 12.7 gm/dL (11.4-16.0); Lymphocytes # (A) 2.1 k/uL (1.0-4.8); Lymphocytes % (A) 27 %; MCH 30.7 pg (25.0-35.0); MCHC 33.6 g/dL (31.0-37.0); MCV 91.5 fL (80.0-100.0); Mean Platelet Volume 8.5; Monocytes # (A) 0.6 k/uL (0-1.0); Monocytes % (A) 7 %; Neutrophils # (A) 4.9 k/uL (1.3-7.7); Neutrophils % (A) 63 %; Platelet Count 203 k/uL (150-450); RBC 4.14 m/uL (3.80-5.40); RDW 12.7 % (11.5-15.5); WBC 7.8 k/uL (3.8-10.6)
[2020-10-12] MEDS: AMIODARONE 200 MG TAB PO SCH ×2 (08:42→20:13)
[2020-10-12] MEDS: PANTOPRAZOLE 40 MG TABLET PO SCH (08:42)
[2020-10-12] MEDS: SUCRALFATE 1 GM TAB PO SCH ×2 (08:42→20:14)
[2020-10-12] MEDS: CYCLOBENZAPRINE 5 MG TAB PO SCH ×4 (08:42→20:14)
[2020-10-12] MEDS: METOPROLOL TARTRATE 25 MG TAB PO SCH ×2 (08:42→20:14)
[2020-10-12] MEDS: ASPIRIN 81 MG PO SCH (08:42)
[2020-10-12] MEDS: CLOPIDOGREL 75 MG TAB PO SCH (08:42)
[2020-10-12 08:44] LABS: Calcium 9.2 mg/dL (8.4-10.2); Potassium 3.4 mmol/L (3.5-5.1)
[2020-10-12] MEDS ORDERED: ATORVASTATIN 40 MG TAB PO SCH (09:00)
--- NOTE | 2020-10-12 10:10 | P.PN ---
Subjective Progress Note Date: 10/12/20 HISTORY OF PRESENT ILLNESS This is an 85-year-old female patient of Dr. Maya past medical history of hypothyroidism, gastroesophageal reflux disease, hypertension. Patient recently underwent EGD with Dr. Allen on September 23 which found antral gastritis, small sliding hiatal hernia, esophagitis. Pathology came back with Sosa's esophagus. Patient is on Carafate twice daily and omeprazole at bedtime. She presented to the hospital with complaints of epigastric pain that went up into her sternal area and up into her shoulder and right arm, right arm weakness and phlegm production. Symptom onset is vague as patient states she's been having mostly symptoms for the last few months but worse over the past couple of days. She denies any shortness of breath. No vomiting. She is found to be afebrile, heart rate 91, blood pressure 165/89, pulse ox 99% on room air. EKG was sinus rhythm with LVH and lateral ST depression. WBC 13.2, hemoglobin 15, platelet co unt 273. Electrolytes and renal function normal. Blood sugar was 117. Total bilirubin 0.7, AST 195, ALT 38, alkaline phosphatase 48. Surprisingly, patient's troponin came back at 5.760. Chest x-ray shows no acute cardio pulmonary process. Patient was diagnosed with a non-ST elevated myocardial infarction, admitted to the cardiac stepdown unit, heparin drip started, cardiology consult requested. 10/11: Repeat troponins came back at 5.62 and 9.2. Triglycerides 143, cholesterol 150, LDL 71, HDL 50. Creatinine 0.77. She denies having any chest pain. Patient is currently on heparin drip. She denies any lightheadedness or dizziness. No palpitations. No blood in her stools. She has been seen by cardiology and given option of heart catheterization or medical management. Patient has decided to undergo heart catheterization. Echocardiogram has been obtained and report is pending. Patient is afebrile, heart rate 73, blood pressure 134/76, pulse ox 96% on room air. 10/12: Patient underwent heart catheterization with Dr. Sawant yesterday which revealed critical stenosis in the distal right coronary artery that appears to be the culprit lesion with collateral from the left coronary system. Significant disease in the mid LAD at the takeoff of the diagonal branch. Patient subsequently underwent stent placement in the distal RCA. Patient is seen today in her room. She denies having any chest pain or shortness of breath. Her wrist shows no signs of hematoma. She denies any abdominal pain, no dark or bloody stools. Patient has been started on Plavix. She has been afebrile, heart rate 79, blood pressure 133/71, pulse ox 96% on room air. Repeat blood work reveals normal CBC. Potassium 3.4 and will be replaced. BUN 18 creatinine 0.83. Echocardiogram reveals EF of 50-55%, mild mitral regurgitation, mild tricuspid regurgitation. Patient is to be monitored overnight and anticipate discharge home tomorrow. REVIEW OF SYSTEMS Constitutional: No fever, no chills, no night sweats. No weight change. No weakness, fatigue or lethargy. No daytime sleepiness. EENT: No headache. No blurred vision or double vision, no loss of vision. No loss of Hearing, no ringing in the ears, no dizziness. No nasal drainage or congestion. No epistaxis. No sore throat. Lungs: No shortness of breath, cough, no sputum production. No wheezing. Cardiovascular: Denies chest pain, no lower extremity edema. No palpitations. No paroxysmal nocturnal dyspnea. No orthopnea. No lightheadedness or dizziness. No syncopal episodes. Abdominal: Denies abdominal pain. No nausea, vomiting. No diarrhea. No constipation. No bloody or tarry stools. Denies loss of appetite. Genitourinary: No dysuria, increased frequency, urgency. No urinary retention. Musculoskeletal: No myalgias. No muscle weakness, no gait dysfunction, no frequent falls. No back pain. No neck pain. Integumentary: No wounds, no lesions. No rash or pruritus. No unusual bruising . No change in hair or nails. Neurologic: No aphasia. No facial droop. No change in mentation. No head injury. No headache. No paralysis. No paresthesia. Psychiatric: No depression. No anxiety. No mood swings. Endocrine: No abnormal blood sugars. No weight change. PHYSICAL EXAMINATION Gen: This is an 85-year-old female. Patient is resting in bed and appears to be comfortable and in no acute distress. HEENT: Head is atraumatic, normocephalic. Pupils equal, round. Sclerae is anicteric. NECK: Supple. No JVD. No lymphadenopathy. No thyromegaly. LUNGS: Clear to auscultation. No wheezes or rhonchi. No intercostal retractions. HEART: Regular rate and rhythm. No murmur. No chest wall tenderness. ABDOMEN: Soft. Bowel sounds are present. No masses. No tenderness. EXTREMITIES: No pedal edema. No calf tenderness. Dorsalis pedis palpable bilaterally. NEUROLOGICAL: Patient is awake, alert and oriented x3. Cranial nerves 2 through 12 are grossly intact. ASSESSMENT AND PLAN 1. Non-ST elevated myocardial infarction. Status post heart catheterization and stenting of the distal RCA. Continue aspirin 81 mg daily, atorvastatin 80 mg daily, Lopressor 25 mg twice daily, Plavix 75 mg daily. 2. Gastritis and esophagitis with Sosa's esophagus. Continue Carafate twice daily and omeprazole daily. 3. Hypothyroidism. Continue levothyroxine 50 g daily. 4. Chronic insomnia. Continue Estazolam 2 mg at bedtime as needed, patient is been on this long-term.. 5. Hypertension. Lopressor 25 mg twice daily, lisinopril 10 mg at bedtime. 6. GI prophylaxis. Omeprazole. 7. DVT prophylaxis. Heparin. DISCHARGE PLAN Most likely return home with her daughter on Sunday. Impression and plan of care have been directed as dictated by the signing physician. Kacie Bush nurse practitioner acting as scribe for signing physician. Objective - Vital Signs Vital signs: Vital Signs Temp 98.2 F 10/11/20 23:15 Pulse 86 10/12/20 03:25 Resp 16 10/12/20 03:25 BP 134/85 10/12/20 03:25 Pulse Ox 95 10/12/20 03:25 Intake & Output 10/11/20 10/12/20 10/12/20 18:59 06:59 18:59 Intake Total 660 259.102 Output Total 250 Balance 660 -250 259.102 Weight 72.6 kg 72.9 kg Intake: IV 300 Intake, IV Titration 139.102 Amount Heparin Sod,Pork in 0.45% 139.102 NaCl 25,000 unit In 0.45 % NaCl 1 250ml.bag @ 12 UNITS/KG/HR 8.712 mls/hr IV .Q24H HAILEE Rx#: [id number] Oral 360 120 Output: Urine 250 Other: Voiding Method Toilet # Voids 2 1 - Labs CBC & Chem 7: 10/12/20 06:47 10/12/20 06:47 Labs: Abnormal Lab Results - Last 24 Hours (Table) 10/11/20 10/11/20 10/12/20 Range/Units 15:51 21:45 06:47 APTT 50.5 H 60.2 H 78.1 H (22.0-30.0) sec
[2020-10-12 11:50] LABS: Glucose,Whole Blood 94 mg/dL (75-99)
--- NOTE | 2020-10-12 13:17 | P.PN ---
Subjective This is a pleasant 85-year-old female with past medical history significant for hypertension. She underwent cardiac catheterization with Dr. Sawant revealing calcified coronary arteries, critical stenosis in the distal RCA, significant disease of the mid LAD at the takeoff of the diagonal and mildly elevated LVEDP. She underwent successful PCI of the RCA at that time. After the procedure he went into atrial fibrillation with rapid ventricular rate. She was initiated on oral amiodarone 400 mg twice a day and heparin infusion. She converted to sinus mechanism this morning. She is seen and examined resting comfortably in bed in no acute distress. She had an episode of chest pain earlier today while sitting up in bed. The pain lasted less than 5 minutes. EKG was unremarkable. She is continuing to remain in SR. Blood pressure 135/77 heart rate 74 afebrile and maintaining oxygen saturation on room air. Laboratory data reviewed, WBC 7.8, hgb 12.7, plt 203, sodium 139, potassium 3.4, creatinine 0.8. Currently maintained on amiodarone 400 mg twice a day, heparin infusion, aspirin 81 mg daily, atorvastatin 80 mg daily, Plavix 75 mg daily, lisinopril 10 mg daily and metoprolol 25 mg twice a day. GENERAL: Well-appearing, well-nourished and in no acute distress. NECK: Supple without JVD or thyromegaly. LUNGS: Breath sounds clear to auscultation bilaterally. Respiration equal and unlabored. No wheezes, rales or rhonchi. HEART: Regular rate and rhythm with systolic ejection murmur at the base, no rubs or gallops. S1 and S2 heard. EXTREMITIES: Normal range of motion, no edema. No clubbing or cyanosis. Peripheral pulses intact. Right radial access site soft, nontender with mild ecchymosis noted. No evidence of oozing or bleeding. ASSESSMENT NSTEMI Coronary artery disease s/p PCI to the RCA Paroxysmal atrial fibrillation with RVR, converted to sinus mechanism Hypertension History of gastritis and esophagitis with Sosa's esophagus PLAN Continue IV heparin infusion at this time. The patient will require PCI of the LAD at some point. This may either take place on this admission if she has further episodes of chest discomfort or possibly can be staged as an outpatient. We will discuss further with Dr. Dr. Sawant. Increase activity as tolerated. Further recommendations to follow based upon clinical course. Nurse Practitioner note has been reviewed, I agree with a documented findings and plan of care. Patient was seen and examined. Objective - Vital Signs Vital signs: Vital Signs Temp 98.4 F 10/12/20 11:30 Pulse 74 10/12/20 11:30 Resp 16 10/12/20 11:30 BP 135/77 10/12/20 11:30 Pulse Ox 96 10/12/20 11:30 Intake & Output 10/11/20 10/12/20 10/12/20 18:59 06:59 18:59 Intake Total 660 808.395 Output Total 250 Balance 660 -250 808.395 Weight 72.6 kg 72.9 kg Intake: IV 300 Intake, IV Titration 148.395 Amount Heparin Sod,Pork in 0.45% 148.395 NaCl 25,000 unit In 0.45 % NaCl 1 250ml.bag @ 12 UNITS/KG/HR 8.712 mls/hr IV .Q24H [facility]E Rx#: [id number] Oral 360 660 Output: Urine 250 Other: Voiding Method Toilet Toilet # Voids 2 1 1 # Bowel Movements 1 - Labs CBC & Chem 7: 10/12/20 06:47 10/12/20 06:47 Labs: Abnormal Lab Results - Last 24 Hours (Table) 10/11/20 10/11/20 10/12/20 Range/Units 15:51 21:45 06:47 APTT 50.5 H 60.2 H (22.0-30.0) sec Potassium 3.4 L (3.5-5.1) mmol/L Chloride 110 H (98-107) mmol/L BUN 18 H (7-17) mg/dL 10/12/20 Range/Units 06:47 APTT 78.1 H (22.0-30.0) sec Potassium (3.5-5.1) mmol/L Chloride (98-107) mmol/L BUN (7-17) mg/dL
[2020-10-12] MEDS: HEPARIN SOD,PORK IN 0.45% NACL 25,000 UNIT in 0.45% NACL 1 250ML.BAG IV SCH (17:56)
[2020-10-12] MEDS: lisinopriL 10 MG TAB PO SCH (20:14)
[2020-10-12] MEDS: ATORVASTATIN 80 MG TAB PO SCH (20:14)
[2020-10-12 20:41] VITALS: RESP 18
[2020-10-12] MEDS ORDERED: MELATONIN 3 MG TABLET PO SCH (21:00)
[2020-10-13] MEDS: LEVOTHYROXINE 50 MCG TAB PO SCH (05:45)
[2020-10-13 06:32] LABS: Basophils % (A) 1 %; Eosinophils # (A) 0.2 k/uL (0-0.7); Eosinophils % (A) 2 %; HGB 12.2 gm/dL (11.4-16.0); Lymphocytes # (A) 1.8 k/uL (1.0-4.8); Lymphocytes % (A) 26 %; MCHC 33.8 g/dL (31.0-37.0); MCV 91.8 fL (80.0-100.0); Mean Platelet Volume 9.1; Monocytes # (A) 0.5 k/uL (0-1.0); Monocytes % (A) 7 %; Neutrophils # (A) 4.5 k/uL (1.3-7.7); Neutrophils % (A) 64 %; Platelet Count 203 k/uL (150-450); RBC 3.92 m/uL (3.80-5.40); RDW 12.7 % (11.5-15.5); WBC 7.1 k/uL (3.8-10.6)
[2020-10-13] MEDS ORDERED: MAGNESIUM HYDROXIDE 2,400 MG/10 ML CUP PO PRN (08:28)
[2020-10-13] MEDS ORDERED: SENNOSIDES-DOCUSATE SODIUM 1 EACH TAB PO SCH (09:00)
[2020-10-13] MEDS ORDERED: SIMETHICONE 80 MG CHEWABLE PO SCH (09:00)
[2020-10-13] MEDS: ASPIRIN 81 MG PO SCH (09:08)
[2020-10-13] MEDS: SUCRALFATE 1 GM TAB PO SCH (09:08)
[2020-10-13] MEDS: METOPROLOL TARTRATE 25 MG TAB PO SCH (09:08)
[2020-10-13] MEDS: AMIODARONE 200 MG TAB PO SCH (09:08)
[2020-10-13] MEDS: CYCLOBENZAPRINE 5 MG TAB PO SCH (09:09)
[2020-10-13] MEDS: CLOPIDOGREL 75 MG TAB PO SCH (09:09)
[2020-10-13] MEDS: PANTOPRAZOLE 40 MG TABLET PO SCH (09:09)
[2020-10-13] MEDS ORDERED: APIXABAN 5 MG TAB PO SCH (10:15)
[2020-10-13 10:18] VITALS: BP 141/79; PULSE 75; TEMP 97.6
--- NOTE | 2020-10-13 10:40 | P.PN ---
Subjective This is a pleasant 85-year-old female with past medical history significant for hypertension. She underwent cardiac catheterization with Dr. Sawant revealing calcified coronary arteries, critical stenosis in the distal RCA, significant disease of the mid LAD at the takeoff of the diagonal and mildly elevated LVEDP. She underwent successful PCI of the RCA at that time. After the procedure he went into atrial fibrillation with rapid ventricular rate. She was initiated on oral amiodarone 400 mg twice a day and heparin infusion. She converted to sinus mechanism this morning. She is seen and examined resting comfortably in bed in no acute distress. She had an episode of chest pain earlier today while sitting up in bed. The pain lasted less than 5 minutes. EKG was unremarkable. She is continuing to remain in SR. Blood pressure 135/77 heart rate 74 afebrile and maintaining oxygen saturation on room air. Laboratory data reviewed, WBC 7.8, hgb 12.7, plt 203, sodium 139, potassium 3.4, creatinine 0.8. Currently maintained on amiodarone 400 mg twice a day, heparin infusion, aspirin 81 mg daily, atorvastatin 80 mg daily, Plavix 75 mg daily, lisinopril 10 mg daily and metoprolol 25 mg twice a day. 10/13/2020 Patient is seen and examined sitting up in the recliner in no acute distress. She had breakfast without nausea or vomiting. She continues to complain of a full sensation in her abdomen that she is describing is gas. She states it is relieved by passing gas. She denies chest pain, dizziness, palpitations or shor tness of breath. She continues to maintain sinus mechanism. Blood pressure 141/79 heart rate 75 afebrile maintaining oxygen saturation on room air. GENERAL: Well-appearing, well-nourished and in no acute distress. NECK: Supple without JVD or thyromegaly. LUNGS: Breath sounds clear to auscultation bilaterally. Respiration equal and unlabored. No wheezes, rales or rhonchi. HEART: Regular rate and rhythm with systolic ejection murmur at the base, no rubs or gallops. S1 and S2 heard. EXTREMITIES: Normal range of motion, no edema. No clubbing or cyanosis. Peripheral pulses intact. Right radial access site soft, nontender with mild ecchymosis noted. No evidence of oozing or bleeding. ASSESSMENT NSTEMI Coronary artery disease s/p PCI to the RCA Paroxysmal atrial fibrillation with RVR, converted to sinus mechanism Hypertension History of gastritis and esophagitis with Sosa's esophagus PLAN Transition to eliquis 2.5 mg BID and discontinue heparin infusion. Eliquis rx has been sent to pharmacy to check for coverage. She will be on triple therapy with eliquis, plavix and aspirin for 30 days. Then in the office Dr. Sawant will stop the aspirin and continue plavix and eliquis. Amiodarone taper down to 200 mg BID and then 200 mg daily thereafter. Continue atorvastatin, lisinopril and lopressor as previously ordered. Follow up with Dr. Sawant in the office in 1-week and further discussion will be had regarding proceeding with staged angioplasty of the LAD. Nurse Practitioner note has been reviewed, I agree with a documented findings and plan of care. Patient was seen and examined. Objective - Vital Signs Vital signs: Vital Signs Temp 97.6 F 10/13/20 08:19 Pulse 75 10/13/20 08:19 Resp 18 10/13/20 08:19 BP 141/79 10/13/20 08:19 Pulse Ox 97 10/13/20 08:19 Intake & Output 10/12/20 10/13/20 10/13/20 18:59 06:59 18:59 Intake Total 1905.979 26.596 10 Output Total 800 Balance 1105.979 26.596 10 Weight 74 kg Intake: IV 10 Invasive Line 1 10 Intake, IV Titration 205.979 26.596 Amount Heparin Sod,Pork in 0.45% 205.979 26.596 NaCl 25,000 unit In 0.45 % NaCl 1 250ml.bag @ 12 UNITS/KG/HR 8.712 mls/hr IV .Q24H [facility] Rx#: [id number] Oral 1700 Output: Urine 800 Other: Voiding Method Toilet Toilet # Voids 1 1 # Bowel Movements 1 1 - Labs CBC & Chem 7: 10/13/20 05:38 10/12/20 06:47 Labs: Abnormal Lab Results - Last 24 Hours (Table) 10/12/20 10/13/20 Range/Units 14:39 05:38 APTT 169.6 H* 46.7 H (22.0-30.0) sec
[2020-10-13] MEDS ORDERED: APIXABAN 2.5 MG TABLET PO SCH (10:45)
--- NOTE | 2020-10-13 12:58 | P.DS ---
Providers Date of admission: 10/10/20 10:16 Expected date of discharge: 10/13/20 Attending physician: Bran Maya Consults: 10/10/20 10:16 Consult Physician Urgent Consulting Provider: Nikko Sawant Consult Reason/Comments: nstemi Do you want consulting provider notified?: Already Contacted 10/11/20 13:01 Consult Physician Routine Consulting Provider: Cardiology Agnes Consult Reason/Comments: Post Interventional patient Do you want consulting provider notified?: Already Contacted Primary care physician: Bran Francesco [facility] Course: HISTORY OF PRESENT ILLNESS This is an 85-year-old female patient of Dr. Maya past medical history of hypothyroidism, gastroesophageal reflux disease, hypertension. Patient recently underwent EGD with Dr. Allen on September 23 which found antral gastritis, small sliding hiatal hernia, esophagitis. Pathology came back with Sosa's esophagus. Patient is on Carafate twice daily and omeprazole at bedtime. She presented to the hospital with complaints of epigastric pain that went up into her sternal area and up into her shoulder and right arm, right arm weakness and phlegm production. Symptom onset is vague as patient states she's been having mostly symptoms for the last few months but worse over the past couple of days. She denies any shortness of breath. No vomiting. She is found to be afebrile, heart rate 91, blood pressure 165/89, pulse ox 99% on room air. EKG was sinus rhythm with LVH and lateral ST depression. WBC 13.2, hemoglobin 15, platelet count 273. Electrolytes and renal function normal. Blood sugar was 117. Total bilirubin 0.7, AST 195, ALT 38, alkaline phosphatase 48. Surprisingly, patient's troponin came back at 5.760. Chest x-ray shows no acute cardio pulmonary process. Patient was diagnosed with a non-ST elevated myocardial infarction, admitted to the cardiac stepdown unit, heparin drip started, cardiology consult requested. 10/11: Repeat troponins came back at 5.62 and 9.2. Triglycerides 143, cholesterol 150, LDL 71, HDL 50. Creatinine 0.77. She denies having any chest pain. Patient is currently on heparin drip. She denies any lightheadedness or dizziness. No palpitations. No blood in her stools. She has been seen by cardiology and given option of heart catheterization or medical management. Patient has decided to undergo heart catheterization. Echocardiogram has been obtained and report is pending. Patient is afebrile, heart rate 73, blood pressure 134/76, pulse ox 96% on room air. 3: Patient underwent heart catheterization with Dr. Sawant yesterday which revealed critical stenosis in the distal right coronary artery that appears to be the culprit lesion with collateral from the left coronary system. Significant disease in the mid LAD at the takeoff of the diagonal branch. Patient subsequently underwent stent placement in the distal RCA. Patient is seen today in her room. She denies having any chest pain or shortness of breath. Her wrist shows no signs of hematoma. She denies any abdominal pain, no dark or bloody stools. Patient has been started on Plavix. She has been afebrile, heart rate 79, blood pressure 133/71, pulse ox 96% on room air. Repeat blood work reveals normal CBC. Potassium 3.4 and will be replaced. BUN 18 creatinine 0.83. Echocardiogram reveals EF of 50-55%, mild mitral regur gitation, mild tricuspid regurgitation. Patient is to be monitored overnight and anticipate discharge home tomorrow. 3: She went into atrial fibrillation and RVR after her procedure and was started on amiodarone and eliquis by cardiology. Patient complains of gas pains and constipation this morning. Medications have been ordered to address this. She denies having any chest pain, shortness of breath, lightheadedness or dizziness, no palpitations. Patient has been afebrile, heart rate 75, blood pressure 141/79, pulse ox 97% on room air. travertine installer is atrial fibrillation, rate controlled. CBC is unremarkable. Patient has been cleared for discharge by cardiology. Patient will be discharged home today in stable condition. ASSESSMENT AND PLAN 1. Non-ST elevated myocardial infarction. Status post heart catheterization and stenting of the distal RCA. 2. Gastritis and esophagitis with Sosa's esophagus. 3. Hypothyroidism. 4. Chronic insomnia. 5. Hypertension. 6. Paroxysmal atrial fibrillation, new onset. DISCHARGE PLAN home with her daughter Impression and plan of care have been directed as dictated by the signing physician. Kacie Bush nurse practitioner acting as scribe for signing physician. Patient Condition at Discharge: Good Plan - Discharge Summary Discharge Rx Participant: Yes New Discharge Prescriptions: New Aspirin 81 mg PO DAILY chew Atorvastatin [Lipitor] 80 mg PO HS #30 tab Metoprolol Tartrate [Lopressor] 25 mg PO BID #60 tab Nitroglycerin Sl Tabs [Nitrostat] 0.4 mg SUBLINGUAL Q5M PRN #25 tab PRN Reason: Chest Pain Amiodarone [Cordarone] 200 mg PO BID #180 tab Clopidogrel [Plavix] 75 mg PO DAILY #90 tab Apixaban [Eliquis] 2.5 mg PO BID #180 tab Continue Estazolam 2 mg PO HS PRN PRN Reason: Insomnia Vitamin C/Biotin [Hair, Skin and Nails] 1 tab PO DAILY Lisinopril [Prinivil] 10 mg PO HS Cyclobenzaprine [Flexeril] 5 mg PO TID Levothyroxine Sodium [Synthroid] 50 mcg PO DAILY Sucralfate [Carafate] 1 gm PO BID Omeprazole 40 mg PO DAILY Turmeric Root Extract [Turmeric] 500 mg PO DAILY Discontinued atenoloL [Atenolol] 25 mg PO HS Discharge Medication List Cyclobenzaprine [Flexeril] 5 mg PO TID 09/22/20 [History] Estazolam 2 mg PO HS PRN 09/22/20 [History] Levothyroxine Sodium [Synthroid] 50 mcg PO DAILY 09/22/20 [History] Lisinopril [Prinivil] 10 mg PO HS 09/22/20 [History] Vitamin C/Biotin [Hair, Skin and Nails] 1 tab PO DAILY 09/22/20 [History] Omeprazole 40 mg PO DAILY 10/10/20 [History] Sucralfate [Carafate] 1 gm PO BID 10/10/20 [History] Turmeric Root Extract [Turmeric] 500 mg PO DAILY 10/10/20 [History] Amiodarone [Cordarone] 200 mg PO BID #180 tab 10/13/20 [Rx] Apixaban [Eliquis] 2.5 mg PO BID #180 tab 10/13/20 [Rx] Aspirin 81 mg PO DAILY chew 10/13/20 [Rx] Atorvastatin [Lipitor] 80 mg PO HS #30 tab 10/13/20 [Rx] Clopidogrel [Plavix] 75 mg PO DAILY #90 tab 10/13/20 [Rx] Metoprolol Tartrate [Lopressor] 25 mg PO BID #60 tab 10/13/20 [Rx] Nitroglycerin Sl Tabs [Nitrostat] 0.4 mg SUBLINGUAL Q5M PRN #25 tab 10/13/20 [Rx] Follow up Appointment(s)/Referral(s): Nikko Sawant MD [STAFF PHYSICIAN] - 1 Week (office will call with appt.) Bran Maya MD [Primary Care Provider] - 10/20/20 11:15 am (Once home, call office. appt with NP. Suzi) Patient Instructions/Handouts: *Surgery [facility] - After Heart Catheterization - Warehouse Inventory Clerk Instructions, Heart Attack (DC), A-fib (Atrial Fibrillation) (ED), Heart Healthy Diet (GEN) Discharge Disposition: HOME SELF-CARE
== END 2020-10-13 13:57 | disposition home or self-care (01) | DRG 247 ==
LOC: EC 07:56 → 3SCARD 10:16
PROVIDERS: ADMIT Internal Medicine Geriatric Medicine; ATTEND Internal Medicine Geriatric Medicine
PROC: B2111ZZ Fluoroscopy of Multiple Coronary Arteries using Low Osmolar Contrast (ICD-10-PCS; 2020-10-11)
PROC: B2151ZZ Fluoroscopy of Left Heart using Low Osmolar Contrast (ICD-10-PCS; 2020-10-11)
PROC: 4A023N7 Measurement of Cardiac Sampling and Pressure, Left Heart, Percutaneous Approach (ICD-10-PCS; principal; 2020-10-11 14:10)
PROC: 027034Z Dilation of Coronary Artery, One Artery with Drug-eluting Intraluminal Device, Percutaneous Approach (ICD-10-PCS; 2020-10-11 14:10)
DX: I21.4 Non-ST elevation (NSTEMI) myocardial infarction (principal); I10 Essential (primary) hypertension; I25.119 Atherosclerotic heart disease of native coronary artery with unspecified angina pectoris; E03.9 Hypothyroidism, unspecified; K21.9 Gastro-esophageal reflux disease without esophagitis; K44.9 Diaphragmatic hernia without obstruction or gangrene; K20.90 Esophagitis, unspecified without bleeding; K22.70 Barrett's esophagus without dysplasia; K29.70 Gastritis, unspecified, without bleeding; G47.00 Insomnia, unspecified; I25.10 Atherosclerotic heart disease of native coronary artery without angina pectoris
CPT/HCPCS: 36415; 71046; 74018; 80048; 80053; 80061; 81001; 82150; 83690; 84484; 85025; 85347; 85610; 85730; 87635; 93005; 93306; 93458

== ENCOUNTER 2020-11-03 10:51 | Day surgery (SDC) | payer MEDICARE ==
[2020-11-01 14:13] VITALS: BMI 27.1
[~2020-11-03 10:51] MED LIST changes: +ALPRAZolam 0.25 MG TAB PO PRN; +ALPRAZolam 0.5 MG TAB PO PRN; +ASPIRIN 325 MG TAB PO STA; +ATORVASTATIN 80 MG TAB PO STA; -LACTATED RINGERS 1,000 ML IV SCH; +NITROGLYCERIN SL TABS 0.4 MG TAB SUBLINGUAL PRN; +SODIUM CHLORIDE 0.9% 1,000 ML in EMPTY BAG 1 BAG IV ONE
[2020-11-03] MEDS ORDERED: VERAPAMIL 2.5 MG/ML 2 ML AMP ONE (11:40)
[2020-11-03] MEDS ORDERED: LIDOCAINE 1% INJ 10MG/ML (20 ML MDV) ONE (11:41)
[2020-11-03] MEDS ORDERED: fentaNYL (PF) 50 MCG/ML 2 ML AMP ONE (11:55)
[2020-11-03] MEDS ORDERED: HEPARIN SODIUM 1,000 UN/ML (10ML VL) ONE (11:55)
[2020-11-03] MEDS ORDERED: fentaNYL (PF) 50 MCG/ML 2 ML AMP IVP ONE (12:16)
[2020-11-03] MEDS ORDERED: LIDOCAINE 1% INJ 10MG/ML (20 ML MDV) SQ ONE (12:20)
[2020-11-03] MEDS ORDERED: VERAPAMIL SYRINGE (5 MG/10 ML) INTRAARTER ONE (12:39)
[2020-11-03] MEDS ORDERED: HEPARIN SODIUM 1,000 UN/ML (10ML VL) IV ONE (12:40)
[2020-11-03] MEDS ORDERED: NITROGLYCERIN 1000MCG/10ML SYRINGE INTRACORON ONE (12:53)
[2020-11-03] MEDS ORDERED: IOPAMIDOL-370 125ML BTL INJ ONE (13:04)
[2020-11-03] MEDS ORDERED: MAG HYDROX/AL HYDROX/SIMETH 30 ML CUP PO PRN (13:24)
[2020-11-03] MEDS ORDERED: NITROGLYCERIN SL TABS 0.4 MG TAB SUBLINGUAL PRN (13:24)
[2020-11-03] MEDS ORDERED: ZOLPIDEM 5 MG TAB PO PRN (13:24)
[2020-11-03] MEDS ORDERED: ATROPINE SULFATE 0.1 MG/ML 10ML SYRINGE IV PRN (13:24)
[2020-11-03] MEDS ORDERED: RX INFO: IV CONTRAST WAS GIVEN 1 EACH MISC MISCELLANE PRN (13:24)
[2020-11-03] MEDS ORDERED: SODIUM CHLORIDE 0.9% 1,000 ML IV SCH (13:30)
--- NOTE | 2020-11-03 14:34 | PTCA ---
PERCUTANEOUSTRANS CORORONARY ANGIOGRAPHY Mrs. Ledezma is an 85-year-old female who presented a few weeks ago with a non STEMI, was found to have subtotally occluded distal right coronary artery and significant disease in the LAD. She underwent stenting of the RCA and presents to undergo elective stenting of the LAD. The procedure as well as risks and the complications were discussed with the patient who is in full understanding and agreement. PROCEDURE: Patient was brought to the cardiac cath lab technologist in the fasting semi-sedated state after receiving fentanyl and Benadryl and achieving moderate conscious sedated state. Using Xylocaine anesthesia and Seldinger technique a 6-Chinese sheath was introduced in the right radial artery. Selective left coronary angiography performed using 6-Chinese EBU 3.75 guiding catheter. After cannulating the left main, a 0.014 balanced medium weight J-wire was advanced and positioned in the diagonal branch. Subsequently another 0.014 balanced medium weight J-wire was advanced and positioned distal LAD. Subsequently, 2.5 x 12 mm NC Emerge balloon was advanced and one inflation at 10 atmospheres was done. Following that, the balloon was removed and a 2.75 x 15 mm Xience Sara stent was advanced, deployed and post-dilated at 16 atmospheres. Following that, the balloon was removed and a 3.0 x 12 mm NC Trek balloon was advanced and one inflation in the stent was done at maximum of 12 atmospheres. After the last inflation, after appropriate wait, the balloon and the guidewire were withdrawn back in the guiding catheter. Images were obtained and repeated. Those images reveal stable successful stenting. At that point, the guiding catheter, the balloon and the guidewire were removed. The sheath was removed. Hemostasis was obtained with deployment of a TR band. There was no immediate complication. Patient was returned to her room in stable condition. Of note, the patient received 5000 units of intravenous heparin, her ACT was followed. She was continued on clopidogrel. She had chest discomfort and EKG changes that resolved at the end procedure. RESULTS: Successful stenting of the mid LAD with reduction of stenosis from 70% to 0%. RECOMMENDATION: Patient be continued on aspirin, Plavix, beta ramsey, MARINA inhibitor, statin. The importance of dual antiplatelet treatment was discussed with the patient and her family and they are in full understanding and agreement. She will be re-evaluated regarding stopping the aspirin. Continue on Plavix and Eliquis because of the prior history of paroxysmal atrial fibrillation. Duration of sedation is 49 minutes. MMODL / IJN: [id number] /
--- NOTE | 2020-11-03 14:40 | LTR ---
November 03, 2020 Re: Jemma Ledezma Dear Dr. Maya: I had the opportunity to perform coronary angioplasty and stenting on Mrs. Ledezma at [facility] on the 03 of November and a full copy of the procedure note will be forwarded to you. In brief, she underwent stenting of her mid LAD. I am hopeful that this procedure will stabilize her status. Thank you again for allowing me the opportunity to participate in her care. Please feel free to call for any questions. Sincerely yours, MD YENNY Armenta / LEV: [id number] /
[2020-11-03] MEDS: CYCLOBENZAPRINE 5 MG TAB PO SCH ×2 (15:20→20:32)
[2020-11-03] MEDS: SUCRALFATE 1 GM TAB PO SCH ×2 (16:25→23:11)
[2020-11-03] MEDS: METOPROLOL TARTRATE 25 MG TAB PO SCH (20:32)
[2020-11-03] MEDS ORDERED: lisinopriL 10 MG TAB PO SCH (21:00)
[2020-11-03] MEDS ORDERED: ATORVASTATIN 80 MG TAB PO SCH (21:00)
[2020-11-04] MEDS ORDERED: LEVOTHYROXINE 50 MCG TAB PO SCH (06:30)
[2020-11-04 06:35] LABS: African American GFR (CKD) 72 (>60 ml/min/1.73 sqM); Anion Gap 8 mmol/L; Blood Urea Nitrogen 17 mg/dL (7-17); Calcium 9.8 mg/dL (8.4-10.2); Carbon Dioxide 28 mmol/L (22-30); Chloride 102 mmol/L (98-107); Glucose 90 mg/dL (74-99); Non-African American GFR(CKD) 63 (>60 ml/min/1.73 sqM); Potassium 4.1 mmol/L (3.5-5.1); Sodium 138 mmol/L (137-145)
[2020-11-04 07:56] VITALS: RESP 15; TEMP 96.8
[2020-11-04] MEDS: METOPROLOL TARTRATE 25 MG TAB PO SCH (08:16)
[2020-11-04] MEDS: SUCRALFATE 1 GM TAB PO SCH (08:16)
[2020-11-04] MEDS: CYCLOBENZAPRINE 5 MG TAB PO SCH (08:16)
--- NOTE | 2020-11-04 08:27 | PN ---
PROGRESS NOTE Mrs. Ledezma is an 85-year-old female who has sustained a myocardial infarction in September and at that time underwent stenting of the RCA. She was found at the same time to have significant obstructive disease involving the LAD. She was admitted yesterday and underwent stenting of that vessel. She is doing well this morning. She denies any chest pain. No dizziness. No palpitation. She denies any nausea or vomiting. She continues to be at this time on aspirin once a day, Plavix 75 mg daily, amiodarone 200 mg daily, Lipitor 80 mg daily, lisinopril 10 mg daily, metoprolol tartrate 25 mg twice a day in addition to Carafate and Protonix. PHYSICAL EXAMINATION: Blood pressure running in the 140s to 150s with the heart rate in the 60s. LUNGS: Clear. HEART: Regular rate and rhythm. S1, S2. No S3 with systolic murmur. No diastolic murmur. No rub. ABDOMEN: Soft, nontender. EXTREMITIES: No edema. Right radial pulse intact. LAB DATA: Lab data revealed BUN and creatinine 17 and 0.85. Potassium of 4.1. EKG with no acute changes. IMPRESSION: 1. Status post stenting of the LAD. 2. Status post myocardial infarction and stenting of the right coronary artery in September. 3. Hypertension. 4. Hyperlipidemia. 5. Paroxysmal atrial fibrillation. RECOMMENDATION: Patient should be able to be discharged home today. She will continue on the aspirin and Plavix and the Eliquis for a week, then the aspirin will be stopped and continue the rest of her medical regimen and depending on her progress, further recommendation will be made. MMODL / IJN: [id number] /
[2020-11-04] MEDS ORDERED: ASPIRIN 81 MG PO SCH (09:00)
[2020-11-04] MEDS ORDERED: PANTOPRAZOLE 40 MG TABLET PO SCH (09:00)
[2020-11-04] MEDS ORDERED: CLOPIDOGREL 75 MG TAB PO SCH (09:00)
[2020-11-04] MEDS ORDERED: AMIODARONE 200 MG TAB PO SCH (09:00)
[2020-11-04 09:59] VITALS: BP 150/91; PULSE 64
== END 2020-11-04 11:00 | disposition home or self-care (01) ==
LOC: CATHCVL 10:51 → 6NMEDSUR 14:09 → CATHCVL 11-04 11:00
PROVIDERS: ATTEND Internal Medicine Interventional Cardiology
DX: I25.10 Atherosclerotic heart disease of native coronary artery without angina pectoris (principal); I10 Essential (primary) hypertension; E78.5 Hyperlipidemia, unspecified; I48.0 Paroxysmal atrial fibrillation; Z82.49 Family history of ischemic heart disease and other diseases of the circulatory system; I25.2 Old myocardial infarction; Z95.5 Presence of coronary angioplasty implant and graft; Z90.710 Acquired absence of both cervix and uterus; Z98.49 Cataract extraction status, unspecified eye; Z96.649 Presence of unspecified artificial hip joint; Z87.891 Personal history of nicotine dependence; Z79.02 Long term (current) use of antithrombotics/antiplatelets; Z79.82 Long term (current) use of aspirin; Z79.899 Other long term (current) drug therapy; Z79.01 Long term (current) use of anticoagulants; Z79.890 Hormone replacement therapy
CPT/HCPCS: 85347; 80048; C9600; C1769 ×3; C1887; C1725 ×2; C1874; C1894; J2001; J3010; J1644; Q9967

== ENCOUNTER 2020-12-09 00:17 | Emergency (ER) | payer MEDICARE ==
[2020-12-09 00:25] VITALS: TEMP 98
[2020-12-09] MEDS ORDERED: SODIUM CHLORIDE 0.9% 1,000 ML IV STA (00:54)
--- NOTE | 2020-12-09 00:58 | ED ---
Recheck HPI - General Chief Complaint: Headache Stated Complaint: Hypertension Time Seen by Provider: 12/09/20 00:31 Source: patient, family Mode of arrival: wheelchair Limitations: no limitations - Related Data Home Medications Medication Instructions Recorded Confirmed Cyclobenzaprine [Flexeril] 5 mg PO TID 09/22/20 11/03/20 Levothyroxine Sodium [Synthroid] 50 mcg PO DAILY 09/22/20 11/03/20 Lisinopril [Prinivil] 10 mg PO HS 09/22/20 11/03/20 Vitamin C/Biotin [Hair, Skin and 1 tab PO DAILY 09/22/20 11/03/20 Nails] Sucralfate [Carafate] 1 gm PO TID 10/10/20 11/03/20 Amiodarone [Cordarone] 200 mg PO DAILY 11/01/20 11/03/20 Lutein 20 mg PO DAILY 11/01/20 11/03/20 Pantoprazole Sodium [Protonix] 40 mg PO DAILY 11/01/20 11/03/20 Previous Rx's Medication Instructions Recorded Apixaban [Eliquis] 2.5 mg PO BID #180 tab 10/13/20 Atorvastatin [Lipitor] 80 mg PO HS #30 tab 10/13/20 Clopidogrel [Plavix] 75 mg PO DAILY #90 tab 10/13/20 Metoprolol Tartrate [Lopressor] 25 mg PO BID #60 tab 10/13/20 Nitroglycerin Sl Tabs [Nitrostat] 0.4 mg SUBLINGUAL Q5M PRN #25 tab 10/13/20 Allergies Allergy/AdvReac Type Severity Reaction Status Date / Time No Known Allergies Allergy Verified 12/09/20 00:25 Review of Systems ROS Statement: Those systems with pertinent positive or pertinent negative responses have been documented in the HPI. ROS Other: All systems not noted in ROS Statement are negative. Past Medical History Past Medical History: Atrial Fibrillation, Hyperlipidemia, Hypertension, Myocardial Infarction ([place]), Thyroid Disorder Additional Past Medical History / Comment(s): recent admission for epigastric pain, non-STEMI, merlos's esophagus Last Myocardial Infarction Date:: 10-11-20 History of Any Multi-Drug Resistant Organisms: None Reported Past Surgical History: Heart Catheterization With Stent, Hysterectomy, Orthopedic Surgery Past Anesthesia/Blood Transfusion Reactions: No Reported Reaction Date of Last Stent Placement:: 10-11-20 Past Psychological History: No Psychological Hx Reported Smoking Status: Never smoker Past Alcohol Use History: None Reported Past Drug Use History: None Reported - Past Family History Mother Additional Family Medical History / Comment(s): Lots of heart issues. General Exam Limitations: no limitations Course Vital Signs 12/09/20 12/09/20 00:19 01:21 Temperature 98.0 F Pulse Rate 65 68 Respiratory 18 16 Rate Blood Pressure 216/91 173/82 O2 Sat by Pulse 98 94 L Oximetry Medical Decision Making - Lab Data Result diagrams: 12/09/20 01:07 Lab Results 12/09/20 Range/Units 01:07 WBC 6.8 (3.8-10.6) k/uL RBC 5.04 (3.80-5.40) m/uL Hgb 14.8 (11.4-16.0) gm/dL Hct 46.2 H (34.0-46.0) % MCV 91.7 (80.0-100.0) fL MCH 29.4 (25.0-35.0) pg MCHC 32.1 (31.0-37.0) g/dL RDW 13.9 (11.5-15.5) % Plt Count 306 (150-450) k/uL MPV 7.6 Neutrophils % 53 % Lymphocytes % 36 % Monocytes % 6 % Eosinophils % 2 % Basophils % 1 % Neutrophils # 3.6 (1.3-7.7) k/uL Lymphocytes # 2.5 (1.0-4.8) k/uL Monocytes # 0.4 (0-1.0) k/uL Eosinophils # 0.1 (0-0.7) k/uL Basophils # 0.1 (0-0.2) k/uL - EKG Data -: EKG Interpreted by Me (EKG is sinus bradycardia 58 NM 190 QRS 76 QTC 433) Disposition Clinical Impression: Hypertension Disposition: HOME SELF-CARE Condition: Good Instructions (If sedation given, give patient instructions): Hypertension (ED) Is patient prescribed a controlled substance at d/c from ED?: No Referrals: Bran Maya MD [Primary Care Provider] - 1-2 days
[2020-12-09] MEDS ORDERED: hydrALAZINE HCL 25 MG TAB PO STA (01:18)
[2020-12-09 01:22] VITALS: RESP 16
[2020-12-09 01:23] LABS: Basophils # (A) 0.1 k/uL (0-0.2); Basophils % (A) 1 %; Eosinophils # (A) 0.1 k/uL (0-0.7); Eosinophils % (A) 2 %; HCT 46.2 % (34.0-46.0); HGB 14.8 gm/dL (11.4-16.0); Lymphocytes # (A) 2.5 k/uL (1.0-4.8); Lymphocytes % (A) 36 %; MCH 29.4 pg (25.0-35.0); MCHC 32.1 g/dL (31.0-37.0); MCV 91.7 fL (80.0-100.0); Mean Platelet Volume 7.6; Monocytes # (A) 0.4 k/uL (0-1.0); Monocytes % (A) 6 %; Neutrophils # (A) 3.6 k/uL (1.3-7.7); Neutrophils % (A) 53 %; Platelet Count 306 k/uL (150-450); RBC 5.04 m/uL (3.80-5.40); RDW 13.9 % (11.5-15.5); WBC 6.8 k/uL (3.8-10.6)
[2020-12-09 01:51] LABS: Albumin 4.8 g/dL (3.5-5.0); Calcium 10.3 mg/dL (8.4-10.2); Magnesium 2.2 mg/dL (1.6-2.3); Phosphorus 4.2 mg/dL (2.5-4.5); Potassium 3.9 mmol/L (3.5-5.1); Total Bilirubin 0.4 mg/dL (0.2-1.3); Total Protein 7.7 g/dL (6.3-8.2)
[2020-12-09] MEDS ORDERED: hydrALAZINE HCL 20 MG/ML 1 ML VIAL IVP STA (02:16)
[2020-12-09 03:23] VITALS: BP 160/92; PULSE 78
== END 2020-12-09 03:23 | disposition home or self-care (01) ==
LOC: EC 00:17
DX: I10 Essential (primary) hypertension (principal); I25.10 Atherosclerotic heart disease of native coronary artery without angina pectoris; E78.5 Hyperlipidemia, unspecified; I25.2 Old myocardial infarction; E07.9 Disorder of thyroid, unspecified; Z90.710 Acquired absence of both cervix and uterus; Z95.5 Presence of coronary angioplasty implant and graft
CPT/HCPCS: 93005; 83880; 80053; 82550; 83735; 84100; 84484; 85025; 99284; 96374; J0360

== ENCOUNTER → 2022-12-12 | Outpatient (CLI) | payer MEDICARE ==
[2022-12-12 12:08] LABS: Prothrombin Time 10.2 sec (9.0-12.0)
[2022-12-12 12:12] LABS: Partial Thromboplastin Time 21.8 sec (22.0-30.0)
[2022-12-12 15:05] LABS: Basophils # (A) 0.05 X 10*3/uL (0.00-0.10); Basophils % (A) 0.9 %; Eosinophils # (A) 0.06 X 10*3/uL (0.04-0.35); Eosinophils % (A) 1.1 %; HCT 49.7 % (37.2-46.3); HGB 15.8 g/dL (12.0-15.0); Immature Grans, Automated 0.2 %; Lymphocytes # (A) 2.14 X 10*3/uL (0.90-5.00); Lymphocytes % (A) 39.2 %; MCH 30.7 pg (27.0-32.0); MCHC 31.8 g/dL (32.0-37.0); MCV 96.7 fL (80.0-97.0); Mean Platelet Volume 9.8 fL (9.5-12.2); Monocytes # (A) 0.41 X 10*3/uL (0.20-1.00); Monocytes % (A) 7.5 %; NRBC Per 100 WBC 0 /100 WBCS (0.0-0.0); Neutrophils # (A) 2.79 X 10*3/uL (1.80-7.70); Neutrophils % (A) 51.1 %; Platelet Count 197 X 10*3/uL (140-440); RBC 5.14 X 10*6/uL (4.10-5.20); RDW 13.8 % (11.5-14.5); WBC 5.46 X 10*3/uL (4.50-10.00)
[2022-12-12 15:23] LABS: African American GFR (CKD) 80.7 (60.0-200.0); BUN/Creat Ratio 32.85 Ratio (12.00-20.00); Blood Urea Nitrogen 25.1 mg/dL (9.0-27.0); Carbon Dioxide 24.3 mmol/L (20.0-27.5); Non-African American GFR(CKD) 69.6 (60.0-200.0); Potassium 4.6 mmol/L (3.5-5.5)
== END | disposition home or self-care (01) ==
LOC: LABWHC1 10:55
PROVIDERS: ATTEND Internal Medicine Geriatric Medicine
DX: Z01.812 Encounter for preprocedural laboratory examination (principal); M16.12 Unilateral primary osteoarthritis, left hip
CPT/HCPCS: 36415; 80048; 83036; 85025; 85610; 85730; 87070

== ENCOUNTER → 2022-12-14 | Outpatient (CLI) | payer MEDICARE | END | disposition home or self-care (01) | LOC: LABWHC1 09:43 | PROVIDERS: ATTEND Internal Medicine Geriatric Medicine | DX: Z01.812 Encounter for preprocedural laboratory examination (principal); M16.12 Unilateral primary osteoarthritis, left hip | CPT/HCPCS: 36415; 83036 ==

== ENCOUNTER → 2022-12-26 | Outpatient (CLI) | payer MEDICARE | END | disposition home or self-care (01) | LOC: LABWHC1 10:30 | PROVIDERS: ATTEND Orthopaedic Surgery | DX: Z01.812 Encounter for preprocedural laboratory examination (principal) | CPT/HCPCS: 86850; 86900; 86901 ==